=== PATIENT | male | born 1965 | race African-American/Black ===

== ENCOUNTER 2018-06-10 08:44 | Inpatient (IN) | payer OTHER ==
[2018-06-10 09:17] VITALS: BMI 31.7
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
[2018-06-10] MEDS ORDERED: P-EPHED 60MG/TRIPROLIDI 2.5MG TABLET PO PRN (10:24)
[2018-06-10] MEDS ORDERED: LOPERAMIDE HCL 2 MG CAPSULE PO PRN (10:24)
[2018-06-10] MEDS ORDERED: MAGNESIUM CITRATE 300 ML BOTTLE PO PRN (10:24)
[2018-06-10] MEDS ORDERED: chlordiazePOXIDE HCL 25 MG CAPSULE PO PRN (10:24)
[2018-06-10] MEDS ORDERED: ACETAMINOPHEN 325 MG TABLET (FP) PO PRN (10:24)
[2018-06-10] MEDS ORDERED: hydrOXYzine PAMOATE 50 MG CAPSULE (FP) PO PRN (10:24)
[2018-06-10] MEDS ORDERED: MAG HYDROX/AL HYDROX/SIMETH 30 ML UNIT-DOSE CUP PO PRN (10:24)
[2018-06-10] MEDS ORDERED: IBUPROFEN 400 MG TABLET (FP) PO PRN (10:24)
[2018-06-10] MEDS ORDERED: MENTHOL/PHENOL 1 EACH UD MM PRN (10:24)
[2018-06-10] MEDS ORDERED: guaiFENesin/D-METHORPHAN HB 10 ML UNIT-DOSE CUPS PO PRN (10:24)
[2018-06-10] MEDS ORDERED: MAGNESIUM HYDROX 2400MG/30ML ORAL SUSPENSION 30 ML CUP PO PRN (10:24)
[2018-06-10] MEDS ORDERED: ALBUTEROL SO4 8 GM HFA INHALER IH PRN (10:26)
[2018-06-10] MEDS: chlordiazePOXIDE HCL 25 MG CAPSULE PO SCH ×2 (17:38→22:15)
[2018-06-10] MEDS ORDERED: MELATONIN 5 MG TABLETS PO PRN (22:00)
[2018-06-10] MEDS: THIAMINE HCL 100 MG TABLET (FP) PO SCH (22:15)
[2018-06-11] MEDS: chlordiazePOXIDE HCL 25 MG CAPSULE PO SCH ×4 (06:15→22:21)
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
--- NOTE | 2018-06-11 09:24 | EKG ---
Test Reason : Blood Pressure : / mmHG Vent. Rate : 060 BPM Atrial Rate : 060 BPM P-R Int : 164 ms QRS Dur : 148 ms QT Int : 468 ms P-R-T Axes : 057 065 051 degrees QTc Int : 468 ms NORMAL SINUS RHYTHM RIGHT BUNDLE BRANCH BLOCK MODERATE VOLTAGE CRITERIA FOR LVH, MAY BE NORMAL VARIANT ABNORMAL ECG WHEN COMPARED WITH ECG OF 10-DEC-2017 00:05, NO SIGNIFICANT CHANGE WAS FOUND Confirmed by RAFA REDMAN, ANASTASIA ([id number]) on 06/11/2018 9:23:24 AM Referred By: Confirmed By:ANASTASIA CRAIG MD
[2018-06-11 10:39] LABS: HEMATOCRIT 41.2 % (35.4-49); HEMOGLOBIN 13.6 GM/dL (11.7-16.9); MCH 30.4 pg (25.7-33.7); MEAN CELL VOLUME 92.1 fl (80-96); MEAN PLT VOLUME 9.7 fl (7.5-11.1); PLATELET COUNT 200 K/MM3 (134-434); RBC 4.48 M/mm3 (4.00-5.60); RDW 13.2 % (11.9-15.9); WHITE BLOOD COUNT 6.3 K/mm3 (4.0-10.0)
[2018-06-11] MEDS: PRENATAL VITAMINS W/ FOLIC ACID TABLET (FP) PO SCH (10:50)
[2018-06-11 11:04] LABS: ALK PHOS 53 U/L (45-117); ANION GAP 10 MMOL/L (8-16); BILIRUBIN,TOTAL 1.6 mg/dL (0.2-1); BLOOD UREA NITROGEN 10 mg/dL (7-18); CALCIUM 9.6 mg/dL (8.5-10.1); CHLORIDE 109 mmol/L (98-107); CO2 25 mmol/L (21-32); CREATININE 1.1 mg/dL (0.55-1.3); GLUCOSE,RANDOM 75 mg/dL (74-106); POTASSIUM 3.8 mmol/L (3.5-5.1); SGOT/AST 27 U/L (15-37); SGPT/ALT 27 U/L (13-61); SODIUM 144 mmol/L (136-145); TOT PROT 7.2 g/dl (6.4-8.2)
[2018-06-11] MEDS ORDERED: FLU VACCINE QUAD 60 MCG/0.5 ML (MDV 18-19) IM ONE (12:00)
--- NOTE | 2018-06-11 12:40 | PN ---
S CIWA - CIWA Score Nausea/Vomitin-Mild Nausea/No Vomiting Muscle Tremors: 2 Anxiety: 1-Mildly Anxious Agitation: 1-Slight > Activity Paroxysmal Sweats: 2 Orientation: 0-Oriented Tacttile Disturbances: 0-None Auditory Disturbances: 0-None Visual Disturbances: 0-None Headache: 3-Moderate CIWA-Ar Total Score: 10 BHS Progress Note (SOAP) Subjective: PATIENT C/O MILD NAUSEA, SHAKES AND HEADACHE. Objective: 06/11/18 12:38 Vital Signs Temperature 96.7 F L 06/11/18 10:47 Pulse Rate 65 06/11/18 10:47 Respiratory Rate 20 06/11/18 10:47 Blood Pressure 103/56 L 06/11/18 10:47 O2 Sat by Pulse Oximetry (%) Laboratory Tests 06/11/18 06/11/18 06:00 06:00 WBC 6.3 RBC 4.48 Hgb 13.6 Hct 41.2 MCV 92.1 MCH 30.4 MCHC 33.0 RDW 13.2 Plt Count 200 MPV 9.7 Sodium 144 Potassium 3.8 Chloride 109 H Carbon Dioxide 25 Anion Gap 10 BUN 10 Creatinine 1.1 Creat Clearance w eGFR > 60 Random Glucose 75 Calcium 9.6 Total Bilirubin 1.6 H AST 27 ALT 27 Alkaline Phosphatase 53 Total Protein 7.2 Albumin 4.0 ALERT AND ORIENTED X 3 CAR S1S2 RESP CTA BL EXT FULL ROM + TREMORS NEURO +PERRLA, EOMS INTACT BL Assessment: 06/11/18 12:39 WITHDRAWAL SYNDROME Plan: CONTINUE DETOX ORDERED ORAL FLUIDS ENCOURAGED CONTINUE TO MONITOR CLINICALLY APAP/MOTRIN PRN FOR PAIN/HEADACHE
[2018-06-11 18:33] LABS: URINE APPEARANCE CLEAR; URINE BILIRUBIN NEGATIVE (<2.0 mg/dL); URINE COLOR STRAW; URINE GLUCOSE (UA) NEGATIVE (NEGATIVE); URINE KETONE NEGATIVE (NEGATIVE); URINE LEUK ESTERASE NEGATIVE (NEGATIVE); URINE NITRITE NEGATIVE (NEGATIVE); URINE PROTEIN NEGATIVE (NEGATIVE); URINE UROBILINOGEN NEGATIVE mg/dL (0.2-1.0)
[2018-06-11] MEDS: THIAMINE HCL 100 MG TABLET (FP) PO SCH (22:21)
[2018-06-12] MEDS: chlordiazePOXIDE HCL 25 MG CAPSULE PO SCH ×2 (06:42→10:39)
[2018-06-12] MEDS: PRENATAL VITAMINS W/ FOLIC ACID TABLET (FP) PO SCH (10:39)
--- NOTE | 2018-06-12 12:55 | PN ---
[facility] CIWA - CIWA Score Nausea/Vomitin Muscle Tremors: 3 Anxiety: 3 Agitation: 3 Paroxysmal Sweats: 3 Orientation: 0-Oriented Tacttile Disturbances: 0-None Auditory Disturbances: 0-None Visual Disturbances: 0-None Headache: 0-None Present CIWA-Ar Total Score: 14 BHS Progress Note (SOAP) Subjective: Headache (mild), interrupted sleep Objective: 06/12/18 12:51 Last Vital Signs Temp Pulse Resp BP Pulse Ox 96.7 F L 78 18 106/72 06/12/18 09:46 06/12/18 09:46 06/12/18 09:46 06/12/18 09:46 Laboratory Tests 06/11/18 06/11/18 06/11/18 06:00 06:00 06:00 WBC 6.3 RBC 4.48 Hgb 13.6 Hct 41.2 MCV 92.1 MCH 30.4 MCHC 33.0 RDW 13.2 Plt Count 200 MPV 9.7 Sodium 144 Potassium 3.8 Chloride 109 H Carbon Dioxide 25 Anion Gap 10 BUN 10 Creatinine 1.1 Creat Clearance w eGFR > 60 Random Glucose 75 Calcium 9.6 Total Bilirubin 1.6 H AST 27 ALT 27 Alkaline Phosphatase 53 Total Protein 7.2 Albumin 4.0 Urine Color Urine Appearance Urine pH Ur Specific [place] Urine Protein Urine Glucose (UA) Urine Ketones Urine Blood Urine Nitrite Urine Bilirubin Urine Urobilinogen Ur Leukocyte Esterase RPR Titer Nonreactive 06/11/18 15:00 WBC RBC Hgb Hct MCV MCH MCHC RDW Plt Count MPV Sodium Potassium Chloride Carbon Dioxide Anion Gap BUN Creatinine Creat Clearance w eGFR Random Glucose Calcium Total Bilirubin AST ALT Alkaline Phosphatase Total Protein Albumin Urine Color Straw Urine Appearance Clear Urine pH 7.0 Ur Specific [place] 1.011 Urine Protein Negative Urine Glucose (UA) Negative Urine Ketones Negative Urine Blood Negative Urine Nitrite Negative Urine Bilirubin Negative Urine Urobilinogen Negative Ur Leukocyte Esterase Negative RPR Titer Labs reviewed: total bilirubin level 1.6 Assessment: 06/12/18 12:53 Withdrawal symptoms Noted with elevated total bilirubin Plan: Continue detox Encouraged PO water intake Elevated total bilirubin: repeat total bilirubin level in AM
--- NOTE | 2018-06-12 17:14 | PN ---
S CIWA - CIWA Score Visual Disturbances: 0-None BHS COWS - Scale Resting Pulse: 1= [place] 81-100 Sweatin= No chills or Flushing Restless Observation: 1= Difficult to Sit Still Pupil Size: 2= Moderately Dilated Bone or Joint Aches: 2= Severe Diffuse Aches Runny Nose/ Eye Tearin= Runny Nose/Eyes GI Upset > 30mins: 1= Stomach Cramp Tremor Observation of Outstretched Hands: 2= Slight Tremor Visible Yawning Observation: 0= None Anxiety or Irritability: 1=Feels Anxious/Irritable Goose Flesh Skin: 3=Piloerection COWS Score: 15 BHS Progress Note (SOAP) Subjective: Patient wanting to start on Suboxone to assist in maintaining sobriety when discharged. I can't eat, I can't sleep. My anxiety level is up. I have achy back and bone pain all over. Objective: Alert and oriented. COWS is 15 w/ 10 points based on objective symptoms. Vital Signs 06/12/18 06/12/18 09:46 13:32 Temperature 96.7 F L 96.1 F L Pulse Rate 78 82 Respiratory 18 18 Rate Blood Pressure 106/72 113/69 Assessment: Opiate withdrawal. Arrangement have been made to be f/u at [facility] upon discharge. 06/12/18 17:25 Plan: Reviewed Suboxone medication treatment as an opiate agonist. Discussed overdose risks r/t medication treatment and if patient continues to use other prescribed and illicit opiates (dibbing and dabbing). Give Suboxone 2mg/0.5 mg SL now. Evaluate in 60 minutes and prescribe a dose increase based on patient's subjective and objective symptoms.
[2018-06-12] MEDS: chlordiazePOXIDE 5 MG CAPSULE PO SCH ×2 (17:20→22:11)
[2018-06-12] MEDS ORDERED: BUPRENORPHINE/NALOXONE 2 MG/0.5 MG FILM PACKET SL ONE (17:22)
[2018-06-12] MEDS: THIAMINE HCL 100 MG TABLET (FP) PO SCH (22:11)
[2018-06-13] MEDS: chlordiazePOXIDE 5 MG CAPSULE PO SCH ×2 (06:04→10:39)
[2018-06-13] MEDS: PRENATAL VITAMINS W/ FOLIC ACID TABLET (FP) PO SCH (10:39)
--- NOTE | 2018-06-13 12:36 | PN ---
[facility] Progress Note Note: PATIENT TOLERATING DETOX REGIMEN. C/O MILD DIARRHEA. REFUSED REPEAT LABS THIS MORNING. Vital Signs Temperature 97.3 F L 06/13/18 09:57 Pulse Rate 96 H 06/13/18 09:57 Respiratory Rate 18 06/13/18 09:57 Blood Pressure 109/69 06/13/18 09:57 O2 Sat by Pulse Oximetry (%) Laboratory Tests 06/11/18 06/11/18 06/11/18 06:00 06:00 06:00 WBC 6.3 RBC 4.48 Hgb 13.6 Hct 41.2 MCV 92.1 MCH 30.4 MCHC 33.0 RDW 13.2 Plt Count 200 MPV 9.7 Sodium 144 Potassium 3.8 Chloride 109 H Carbon Dioxide 25 Anion Gap 10 BUN 10 Creatinine 1.1 Creat Clearance w eGFR > 60 Random Glucose 75 Calcium 9.6 Total Bilirubin 1.6 H AST 27 ALT 27 Alkaline Phosphatase 53 Total Protein 7.2 Albumin 4.0 Urine Color Urine Appearance Urine pH Ur Specific [place] Urine Protein Urine Glucose (UA) Urine Ketones Urine Blood Urine Nitrite Urine Bilirubin Urine Urobilinogen Ur Leukocyte Esterase RPR Titer Nonreactive 06/11/18 15:00 WBC RBC Hgb Hct MCV MCH MCHC RDW Plt Count MPV Sodium Potassium Chloride Carbon Dioxide Anion Gap BUN Creatinine Creat Clearance w eGFR Random Glucose Calcium Total Bilirubin AST ALT Alkaline Phosphatase Total Protein Albumin Urine Color Straw Urine Appearance Clear Urine pH 7.0 Ur Specific [place] 1.011 Urine Protein Negative Urine Glucose (UA) Negative Urine Ketones Negative Urine Blood Negative Urine Nitrite Negative Urine Bilirubin Negative Urine Urobilinogen Negative Ur Leukocyte Esterase Negative RPR Titer SKIN WARM AND DRY CAR S1S2 RESP CTA BL EXT AMB AD JAMISON, NO TREMORS ALERT AND ORIENTED X 3 A/P: WITHDRAWAL SX PATIENT TO CONTINUE DETOX ENCOURAGE ORAL FLUIDS IMMODIUM PRN PATIENT ENCOURAGED TO FOLLOW UP WITH PCP WITHIN 3 DAYS OF DISCHARGE FOR FOLLOW UP CONTINUE TO MONITOR
[2018-06-13] MEDS: chlordiazePOXIDE HCL 10 MG CAPSULE PO SCH ×2 (17:31→22:33)
[2018-06-13] MEDS: THIAMINE HCL 100 MG TABLET (FP) PO SCH (22:33)
[2018-06-14] MEDS: chlordiazePOXIDE HCL 10 MG CAPSULE PO SCH ×2 (05:57→10:31)
[2018-06-14 10:01] VITALS: BP 118/68; PULSE 78; TEMP 98.1
[2018-06-14] MEDS: PRENATAL VITAMINS W/ FOLIC ACID TABLET (FP) PO SCH (10:31)
--- NOTE | 2018-06-14 12:23 | DS ---
[facility] Detox Discharge Summary Admission Date: 06/10/18 Discharge Date: 06/14/18 - History Present History: Alcohol Dependence, Cocaine Dependence Pertinent Past History: Asthma Obesity - Physical Exam Results Vital Signs: Vital Signs Temperature 98.1 F 06/14/18 10:00 Pulse Rate 78 06/14/18 10:00 Respiratory Rate 18 06/14/18 10:00 Blood Pressure 118/68 06/14/18 10:00 O2 Sat by Pulse Oximetry (%) Pertinent Admission Physical Exam Findings: Withdrawal symptoms Laboratory Tests 06/11/18 06/11/18 06/11/18 06:00 06:00 06:00 WBC 6.3 RBC 4.48 Hgb 13.6 Hct 41.2 MCV 92.1 MCH 30.4 MCHC 33.0 RDW 13.2 Plt Count 200 MPV 9.7 Sodium 144 Potassium 3.8 Chloride 109 H Carbon Dioxide 25 Anion Gap 10 BUN 10 Creatinine 1.1 Creat Clearance w eGFR > 60 Random Glucose 75 Calcium 9.6 Total Bilirubin 1.6 H AST 27 ALT 27 Alkaline Phosphatase 53 Total Protein 7.2 Albumin 4.0 Urine Color Urine Appearance Urine pH Ur Specific [place] Urine Protein Urine Glucose (UA) Urine Ketones Urine Blood Urine Nitrite Urine Bilirubin Urine Urobilinogen Ur Leukocyte Esterase RPR Titer Nonreactive 06/11/18 15:00 WBC RBC Hgb Hct MCV MCH MCHC RDW Plt Count MPV Sodium Potassium Chloride Carbon Dioxide Anion Gap BUN Creatinine Creat Clearance w eGFR Random Glucose Calcium Total Bilirubin AST ALT Alkaline Phosphatase Total Protein Albumin Urine Color Straw Urine Appearance Clear Urine pH 7.0 Ur Specific [place] 1.011 Urine Protein Negative Urine Glucose (UA) Negative Urine Ketones Negative Urine Blood Negative Urine Nitrite Negative Urine Bilirubin Negative Urine Urobilinogen Negative Ur Leukocyte Esterase Negative RPR Titer Labs reviewed (patient refused repeated lab as ordered for elevated total bilirubin) - Treatment Hospital Course: Detox Protocol Followed, Detoxed Safely, Responded well, Discharged Condition Good - Medication Discharge Medications: Ambulatory Orders NK [No Known Home Medication] 12/09/17 - Diagnosis (1) Serum total bilirubin elevated Current Visit: Yes Status: Acute (2) Asthma Current Visit: Yes Status: Chronic (3) Depression Current Visit: Yes Status: Chronic (4) Alcohol dependence with withdrawal Current Visit: Yes Status: Acute Qualifiers: Complication of substance-induced condition: uncomplicated Qualified Code(s ): F10.230 - Alcohol dependence with withdrawal, uncomplicated (5) Bipolar disorder Current Visit: Yes Status: Chronic Qualifiers: Active/Remission status: remission status unspecified Qualified Code(s): F31.9 - Bipolar disorder, unspecified (6) Cocaine dependence Current Visit: No Status: Chronic Qualifiers: Substance use status: uncomplicated Qualified Code(s): F14.20 - Cocaine dependence, uncomplicated (7) Obese Current Visit: Yes Status: Chronic Qualifiers: Obesity type: due to excess calories Obesity classification: adult class 2 (BMI 35 - 39.9) Serious obesity comorbidity presence: unspecified whether serious comorbidity present Body mass index: BMI 38.0-38.9 Qualified Code(s) : E66.09 - Other obesity due to excess calories; Z68.38 - Body mass index (BMI) 38.0-38.9, adult - AMA Did Patient Leave Against Medical Advice: No (F/U with your PCP within 1-2 weeks )
== END 2018-06-14 14:40 | disposition home or self-care (01) | DRG 774 ==
LOC: YASAS 08:44 → Y3N 10:28
PROC: HZ2ZZZZ Detoxification Services for Substance Abuse Treatment (ICD-10-PCS; principal; 2018-06-10)
DX: F10.230 Alcohol dependence with withdrawal, uncomplicated (principal); F14.20 Cocaine dependence, uncomplicated; F31.9 Bipolar disorder, unspecified; F32.9 Major depressive disorder, single episode, unspecified; J45.909 Unspecified asthma, uncomplicated; E78.00 Pure hypercholesterolemia, unspecified; R17 Unspecified jaundice; E66.09 Other obesity due to excess calories; Z68.31 Body mass index [BMI] 31.0-31.9, adult; Z88.0 Allergy status to penicillin
CPT/HCPCS: 36415; 80053; 81003; 85027; 86593; 93005; 93010

== ENCOUNTER 2018-07-23 08:49 | Inpatient (IN) | payer OTHER ==
[2018-07-23 10:04] VITALS: BMI 32.5
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
[2018-07-23] MEDS ORDERED: MAGNESIUM CITRATE 300 ML BOTTLE PO PRN (11:22)
[2018-07-23] MEDS ORDERED: chlordiazePOXIDE HCL 25 MG CAPSULE PO PRN (11:22)
[2018-07-23] MEDS ORDERED: MENTHOL/PHENOL 1 EACH UD MM PRN (11:22)
[2018-07-23] MEDS ORDERED: guaiFENesin/D-METHORPHAN HB 10 ML UNIT-DOSE CUPS PO PRN (11:22)
[2018-07-23] MEDS ORDERED: MAG HYDROX/AL HYDROX/SIMETH 30 ML UNIT-DOSE CUP PO PRN (11:22)
[2018-07-23] MEDS ORDERED: ACETAMINOPHEN 325 MG TABLET (FP) PO PRN (11:22)
[2018-07-23] MEDS ORDERED: P-EPHED 60MG/TRIPROLIDI 2.5MG TABLET PO PRN (11:22)
[2018-07-23] MEDS ORDERED: LOPERAMIDE HCL 2 MG CAPSULE PO PRN (11:22)
[2018-07-23] MEDS ORDERED: hydrOXYzine PAMOATE 50 MG CAPSULE (FP) PO PRN (11:22)
[2018-07-23] MEDS ORDERED: MAGNESIUM HYDROX 2400MG/30ML ORAL SUSPENSION 30 ML CUP PO PRN (11:22)
[2018-07-23] MEDS: IBUPROFEN 400 MG TABLET (FP) PO PRN (12:45)
[2018-07-23 18:42] LABS: URINE APPEARANCE SLCLOUDY; URINE BILIRUBIN NEGATIVE (<2.0 mg/dL); URINE COLOR DKYELLOW; URINE GLUCOSE (UA) NEGATIVE (NEGATIVE); URINE KETONE NEGATIVE (NEGATIVE); URINE LEUK ESTERASE NEGATIVE (NEGATIVE); URINE NITRITE NEGATIVE (NEGATIVE); URINE PROTEIN NEGATIVE (NEGATIVE)
[2018-07-23] MEDS: chlordiazePOXIDE HCL 25 MG CAPSULE PO SCH ×2 (19:45→22:42)
[2018-07-23] MEDS ORDERED: MELATONIN 5 MG TABLETS PO PRN (22:00)
[2018-07-23] MEDS: THIAMINE HCL 100 MG TABLET (FP) PO SCH (22:41)
[2018-07-24] MEDS: chlordiazePOXIDE HCL 25 MG CAPSULE PO SCH ×4 (05:48→22:45)
--- NOTE | 2018-07-24 10:00 | PN ---
S CIWA - CIWA Score Nausea/Vomitin-No Nausea/No Vomiting Muscle Tremors: 3 Anxiety: 2 Agitation: 4-Moderately Restless Paroxysmal Sweats: 3 Orientation: 0-Oriented Tacttile Disturbances: 0-None Auditory Disturbances: 0-None Visual Disturbances: 0-None Headache: 0-None Present CIWA-Ar Total Score: 12 BHS Progress Note (SOAP) Subjective: shakes sweats interrupted sleep body aches Objective: 07/24/18 09:59 Vital Signs Temperature 97.9 F 07/24/18 07:42 Pulse Rate 55 L 07/24/18 07:42 Respiratory Rate 18 07/24/18 07:42 Blood Pressure 108/59 L 07/24/18 07:42 O2 Sat by Pulse Oximetry (%) Laboratory Tests 07/23/18 17:30 Urine Color Dkyellow Urine Appearance Slcloudy Urine pH 5.0 D Ur Specific [place] 1.025 Urine Protein Negative Urine Glucose (UA) Negative Urine Ketones Negative Urine Blood Negative Urine Nitrite Negative Urine Bilirubin Negative Urine Urobilinogen 2.0 Ur Leukocyte Esterase Negative rest of labs pending aaox3 ambulating no acute distress Assessment: 07/24/18 09:59 withdrawal sx Plan: continue detox increase fluids labs pending
[2018-07-24 10:27] LABS: HEMATOCRIT 39.3 % (35.4-49); HEMOGLOBIN 13.7 GM/dL (11.7-16.9); MCH 32.3 pg (25.7-33.7); MEAN CELL VOLUME 92.3 fl (80-96); MEAN PLT VOLUME 9.7 fl (7.5-11.1); PLATELET COUNT 205 K/MM3 (134-434); RBC 4.25 M/mm3 (4.00-5.60); RDW 13.2 % (11.9-15.9); WHITE BLOOD COUNT 7.4 K/mm3 (4.0-10.0)
[2018-07-24] MEDS: PRENATAL VITAMINS W/ FOLIC ACID TABLET (FP) PO SCH (10:36)
[2018-07-24] MEDS: IBUPROFEN 400 MG TABLET (FP) PO PRN (10:39)
[2018-07-24 11:05] LABS: ALBUMIN 3.5 g/dl (3.4-5.0); ALK PHOS 82 U/L (45-117); ANION GAP 10 MMOL/L (8-16); BILIRUBIN,TOTAL 0.2 mg/dL (0.2-1); BLOOD UREA NITROGEN 13 mg/dL (7-18); CALCIUM 8.5 mg/dL (8.5-10.1); CHLORIDE 102 mmol/L (98-107); CO2 27 mmol/L (21-32); CREATININE 1.1 mg/dL (0.55-1.3); GLUCOSE,RANDOM 102 mg/dL (74-106); POTASSIUM 3.8 mmol/L (3.5-5.1); SGOT/AST 13 U/L (15-37); SGPT/ALT 14 U/L (13-61); SODIUM 139 mmol/L (136-145); TOT PROT 8.5 g/dl (6.4-8.2)
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
[2018-07-24] MEDS: THIAMINE HCL 100 MG TABLET (FP) PO SCH (22:45)
[2018-07-25] MEDS: chlordiazePOXIDE HCL 25 MG CAPSULE PO SCH ×2 (05:58→10:23)
[2018-07-25] MEDS: PRENATAL VITAMINS W/ FOLIC ACID TABLET (FP) PO SCH (10:23)
--- NOTE | 2018-07-25 13:37 | PN ---
[facility] CIWA - CIWA Score Nausea/Vomitin-Mild Nausea/No Vomiting Muscle Tremors: 2 Anxiety: 2 Agitation: 2 Paroxysmal Sweats: 3 Orientation: 0-Oriented Tacttile Disturbances: 0-None Auditory Disturbances: 0-None Visual Disturbances: 0-None Headache: 0-None Present CIWA-Ar Total Score: 10 S Progress Note (SOAP) Subjective: sweats interrupted sleep Objective: 07/25/18 13:32 A & O x 3 sitting up on bed eating Vital Signs Temperature 97.6 F 07/25/18 10:38 Pulse Rate 70 07/25/18 10:38 Respiratory Rate 18 07/25/18 10:38 Blood Pressure 123/65 07/25/18 10:38 O2 Sat by Pulse Oximetry (%) Laboratory Last Values WBC 7.4 K/mm3 (4.0-10.0) 07/24/18 05:55 RBC 4.25 M/mm3 (4.00-5.60) 07/24/18 05:55 Hgb 13.7 GM/dL (11.7-16.9) 07/24/18 05:55 Hct 39.3 % (35.4-49) 07/24/18 05:55 MCV 92.3 fl (80-96) 07/24/18 05:55 MCH 32.3 pg (25.7-33.7) 07/24/18 05:55 MCHC 35.0 g/dl (32.0-35.9) 07/24/18 05:55 RDW 13.2 % (11.9-15.9) 07/24/18 05:55 Plt Count 205 K/MM3 (134-434) 07/24/18 05:55 MPV 9.7 fl (7.5-11.1) 07/24/18 05:55 Sodium 139 mmol/L (136-145) 07/24/18 05:55 Potassium 3.8 mmol/L (3.5-5.1) 07/24/18 05:55 Chloride 102 mmol/L (98-107) 07/24/18 05:55 Carbon Dioxide 27 mmol/L (21-32) 07/24/18 05:55 Anion Gap 10 MMOL/L (8-16) 07/24/18 05:55 BUN 13 mg/dL (7-18) 07/24/18 05:55 Creatinine 1.1 mg/dL (0.55-1.3) 07/24/18 05:55 Creat Clearance w eGFR > 60 (>60) 07/24/18 05:55 Random Glucose 102 mg/dL (74-106) 07/24/18 05:55 Calcium 8.5 mg/dL (8.5-10.1) 07/24/18 05:55 Total Bilirubin 0.2 mg/dL (0.2-1) 07/24/18 05:55 AST 13 U/L (15-37) L 07/24/18 05:55 ALT 14 U/L (13-61) 07/24/18 05:55 Alkaline Phosphatase 82 U/L (45-117) 07/24/18 05:55 Total Protein 8.5 g/dl (6.4-8.2) H 07/24/18 05:55 Albumin 3.5 g/dl (3.4-5.0) 07/24/18 05:55 Urine Color Dkyellow 07/23/18 17:30 Urine Appearance Slcloudy 07/23/18 17:30 Urine pH 5.0 (5.0-8.0) D 07/23/18 17:30 Ur Specific [place] 1.025 (1.010-1.035) 07/23/18 17:30 Urine Protein Negative (NEGATIVE) 07/23/18 17:30 Urine Glucose (UA) Negative (NEGATIVE) 07/23/18 17:30 Urine Ketones Negative (NEGATIVE) 07/23/18 17:30 Urine Blood Negative (NEGATIVE) 07/23/18 17:30 Urine Nitrite Negative (NEGATIVE) 07/23/18 17:30 Urine Bilirubin Negative (<2.0 mg/dL) 07/23/18 17:30 Urine Urobilinogen 2.0 mg/dL (0.2-1.0) 07/23/18 17:30 Ur Leukocyte Esterase Negative (NEGATIVE) 07/23/18 17:30 RPR Titer Nonreactive (NONREACTIVE) 07/24/18 05:55 labs noted Assessment: 07/25/18 13:37 withdrawal sx Plan: continue detox continue increased hydration
[2018-07-25] MEDS: chlordiazePOXIDE 5 MG CAPSULE PO SCH ×2 (17:38→22:15)
[2018-07-25] MEDS: THIAMINE HCL 100 MG TABLET (FP) PO SCH (22:14)
[2018-07-26] MEDS: chlordiazePOXIDE 5 MG CAPSULE PO SCH ×2 (05:32→10:21)
[2018-07-26] MEDS: PRENATAL VITAMINS W/ FOLIC ACID TABLET (FP) PO SCH (10:21)
--- NOTE | 2018-07-26 14:24 | PN ---
BHS Progress Note (SOAP) Subjective: feeling better today no tremor less sweat social with peers in day room Objective: 07/26/18 14:25 Vital Signs Temperature 98.9 F 07/26/18 14:06 Pulse Rate 90 07/26/18 14:06 Respiratory Rate 18 07/26/18 14:06 Blood Pressure 116/70 07/26/18 14:06 O2 Sat by Pulse Oximetry (%) Laboratory Last Values WBC 7.4 K/mm3 (4.0-10.0) 07/24/18 05:55 RBC 4.25 M/mm3 (4.00-5.60) 07/24/18 05:55 Hgb 13.7 GM/dL (11.7-16.9) 07/24/18 05:55 Hct 39.3 % (35.4-49) 07/24/18 05:55 MCV 92.3 fl (80-96) 07/24/18 05:55 MCH 32.3 pg (25.7-33.7) 07/24/18 05:55 MCHC 35.0 g/dl (32.0-35.9) 07/24/18 05:55 RDW 13.2 % (11.9-15.9) 07/24/18 05:55 Plt Count 205 K/MM3 (134-434) 07/24/18 05:55 MPV 9.7 fl (7.5-11.1) 07/24/18 05:55 Sodium 139 mmol/L (136-145) 07/24/18 05:55 Potassium 3.8 mmol/L (3.5-5.1) 07/24/18 05:55 Chloride 102 mmol/L (98-107) 07/24/18 05:55 Carbon Dioxide 27 mmol/L (21-32) 07/24/18 05:55 Anion Gap 10 MMOL/L (8-16) 07/24/18 05:55 BUN 13 mg/dL (7-18) 07/24/18 05:55 Creatinine 1.1 mg/dL (0.55-1.3) 07/24/18 05:55 Creat Clearance w eGFR > 60 (>60) 07/24/18 05:55 Random Glucose 102 mg/dL (74-106) 07/24/18 05:55 Calcium 8.5 mg/dL (8.5-10.1) 07/24/18 05:55 Total Bilirubin 0.2 mg/dL (0.2-1) 07/24/18 05:55 AST 13 U/L (15-37) L 07/24/18 05:55 ALT 14 U/L (13-61) 07/24/18 05:55 Alkaline Phosphatase 82 U/L (45-117) 07/24/18 05:55 Total Protein 8.5 g/dl (6.4-8.2) H 07/24/18 05:55 Albumin 3.5 g/dl (3.4-5.0) 07/24/18 05:55 Urine Color Dkyellow 07/23/18 17:30 Urine Appearance Slcloudy 07/23/18 17:30 Urine pH 5.0 (5.0-8.0) D 07/23/18 17:30 Ur Specific [place] 1.025 (1.010-1.035) 07/23/18 17:30 Urine Protein Negative (NEGATIVE) 07/23/18 17:30 Urine Glucose (UA) Negative (NEGATIVE) 07/23/18 17:30 Urine Ketones Negative (NEGATIVE) 07/23/18 17:30 Urine Blood Negative (NEGATIVE) 07/23/18 17:30 Urine Nitrite Negative (NEGATIVE) 07/23/18 17:30 Urine Bilirubin Negative (<2.0 mg/dL) 07/23/18 17:30 Urine Urobilinogen 2.0 mg/dL (0.2-1.0) 07/23/18 17:30 Ur Leukocyte Esterase Negative (NEGATIVE) 07/23/18 17:30 RPR Titer Nonreactive (NONREACTIVE) 07/24/18 05:55 lab noted Assessment: 07/26/18 14:25 mild withdrawal sx Plan: continue detox
[2018-07-26] MEDS: chlordiazePOXIDE HCL 10 MG CAPSULE PO SCH ×2 (18:03→22:09)
[2018-07-26] MEDS: THIAMINE HCL 100 MG TABLET (FP) PO SCH (22:09)
[2018-07-27] MEDS: chlordiazePOXIDE HCL 10 MG CAPSULE PO SCH ×2 (05:33→10:08)
[2018-07-27 09:08] VITALS: BP 131/81; PULSE 87; TEMP 98.2
[2018-07-27] MEDS: PRENATAL VITAMINS W/ FOLIC ACID TABLET (FP) PO SCH (10:08)
--- NOTE | 2018-07-27 14:52 | DS ---
[facility] Detox Discharge Summary Admission Date: 07/23/18 Discharge Date: 07/27/18 - History Present History: Alcohol Dependence Additional Comments: 53 years old male admitted on 07/23/18 for alcohol withdrawal sx completed detox regimen tolerated well alert oriented x 3 no acute distress aftercare [facility] - Physical Exam Results Vital Signs: Vital Signs Temperature 98.2 F 07/27/18 09:07 Pulse Rate 87 07/27/18 09:07 Respiratory Rate 18 07/27/18 09:07 Blood Pressure 131/81 07/27/18 09:07 O2 Sat by Pulse Oximetry (%) Pertinent Admission Physical Exam Findings: alcohol withdrawal sx Vital Signs Temperature 98.2 F 07/27/18 09:07 Pulse Rate 87 07/27/18 09:07 Respiratory Rate 18 07/27/18 09:07 Blood Pressure 131/81 07/27/18 09:07 O2 Sat by Pulse Oximetry (%) Laboratory Last Values WBC 7.4 K/mm3 (4.0-10.0) 07/24/18 05:55 RBC 4.25 M/mm3 (4.00-5.60) 07/24/18 05:55 Hgb 13.7 GM/dL (11.7-16.9) 07/24/18 05:55 Hct 39.3 % (35.4-49) 07/24/18 05:55 MCV 92.3 fl (80-96) 07/24/18 05:55 MCH 32.3 pg (25.7-33.7) 07/24/18 05:55 MCHC 35.0 g/dl (32.0-35.9) 07/24/18 05:55 RDW 13.2 % (11.9-15.9) 07/24/18 05:55 Plt Count 205 K/MM3 (134-434) 07/24/18 05:55 MPV 9.7 fl (7.5-11.1) 07/24/18 05:55 Sodium 139 mmol/L (136-145) 07/24/18 05:55 Potassium 3.8 mmol/L (3.5-5.1) 07/24/18 05:55 Chloride 102 mmol/L (98-107) 07/24/18 05:55 Carbon Dioxide 27 mmol/L (21-32) 07/24/18 05:55 Anion Gap 10 MMOL/L (8-16) 07/24/18 05:55 BUN 13 mg/dL (7-18) 07/24/18 05:55 Creatinine 1.1 mg/dL (0.55-1.3) 07/24/18 05:55 Creat Clearance w eGFR > 60 (>60) 07/24/18 05:55 Random Glucose 102 mg/dL (74-106) 07/24/18 05:55 Calcium 8.5 mg/dL (8.5-10.1) 07/24/18 05:55 Total Bilirubin 0.2 mg/dL (0.2-1) 07/24/18 05:55 AST 13 U/L (15-37) L 07/24/18 05:55 ALT 14 U/L (13-61) 07/24/18 05:55 Alkaline Phosphatase 82 U/L (45-117) 07/24/18 05:55 Total Protein 8.5 g/dl (6.4-8.2) H 07/24/18 05:55 Albumin 3.5 g/dl (3.4-5.0) 07/24/18 05:55 Urine Color Dkyellow 07/23/18 17:30 Urine Appearance Slcloudy 07/23/18 17:30 Urine pH 5.0 (5.0-8.0) D 07/23/18 17:30 Ur Specific [place] 1.025 (1.010-1.035) 07/23/18 17:30 Urine Protein Negative (NEGATIVE) 07/23/18 17:30 Urine Glucose (UA) Negative (NEGATIVE) 07/23/18 17:30 Urine Ketones Negative (NEGATIVE) 07/23/18 17:30 Urine Blood Negative (NEGATIVE) 07/23/18 17:30 Urine Nitrite Negative (NEGATIVE) 07/23/18 17:30 Urine Bilirubin Negative (<2.0 mg/dL) 07/23/18 17:30 Urine Urobilinogen 2.0 mg/dL (0.2-1.0) 07/23/18 17:30 Ur Leukocyte Esterase Negative (NEGATIVE) 07/23/18 17:30 RPR Titer Nonreactive (NONREACTIVE) 07/24/18 05:55 lab noted - Treatment Hospital Course: Detox Protocol Followed, Detoxed Safely, Responded well, Discharged Condition Good, Rehab Referral Accepted Patient has Accepted a Rehab Referral to: [facility] - Medication Discharge Medications: Ambulatory Orders NK [No Known Home Medication] 12/09/17 - Diagnosis (1) Nicotine dependence Status: Acute Qualifiers: Nicotine product type: cigarettes Substance use status: in withdrawal Qualified Code(s): F17.213 - Nicotine dependence, cigarettes, with withdrawal (2) Asthma Status: Chronic Qualifiers: Asthma severity: mild Asthma persistence: intermittent Asthma complication type: with status asthmaticus Qualified Code(s): J45.22 - Mild intermittent asthma with status asthmaticus (3) Substance induced mood disorder Status: Suspected - AMA Did Patient Leave Against Medical Advice: No
== END 2018-07-27 11:30 | disposition home or self-care (01) | DRG 774 ==
LOC: YASAS 08:49 → Y6N 11:48
PROC: HZ2ZZZZ Detoxification Services for Substance Abuse Treatment (ICD-10-PCS; principal; 2018-07-23)
DX: F10.230 Alcohol dependence with withdrawal, uncomplicated (principal); F14.20 Cocaine dependence, uncomplicated; F17.213 Nicotine dependence, cigarettes, with withdrawal; F32.9 Major depressive disorder, single episode, unspecified; F19.24 Other psychoactive substance dependence with psychoactive substance-induced mood disorder; F31.9 Bipolar disorder, unspecified; F80.9 Developmental disorder of speech and language, unspecified; J45.22 Mild intermittent asthma with status asthmaticus; K59.00 Constipation, unspecified; K00.0 Anodontia; E66.9 Obesity, unspecified; Z68.38 Body mass index [BMI] 38.0-38.9, adult; Z91.19 Patient's noncompliance with other medical treatment and regimen
CPT/HCPCS: 36415; 80053; 81003; 85027; 86593

== ENCOUNTER 2018-10-22 12:56 | Inpatient (IN) | payer OTHER ==
[2018-10-22 13:34] VITALS: BMI 33.2
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
[2018-10-22] MEDS ORDERED: MENTHOL/PHENOL 1 EACH UD MM PRN (15:02)
[2018-10-22] MEDS ORDERED: hydrOXYzine PAMOATE 50 MG CAPSULE (FP) PO PRN (15:02)
[2018-10-22] MEDS ORDERED: ACETAMINOPHEN 325 MG TABLET (FP) PO PRN (15:02)
[2018-10-22] MEDS ORDERED: IBUPROFEN 400 MG TABLET (FP) PO PRN (15:02)
[2018-10-22] MEDS ORDERED: P-EPHED 60MG/TRIPROLIDI 2.5MG TABLET PO PRN (15:02)
[2018-10-22] MEDS ORDERED: LOPERAMIDE HCL 2 MG CAPSULE PO PRN (15:02)
[2018-10-22] MEDS ORDERED: chlordiazePOXIDE HCL 25 MG CAPSULE PO PRN (15:02)
[2018-10-22] MEDS ORDERED: MAG HYDROX/AL HYDROX/SIMETH 30 ML UNIT-DOSE CUP PO PRN (15:02)
[2018-10-22] MEDS ORDERED: guaiFENesin/D-METHORPHAN HB 10 ML UNIT-DOSE CUPS PO PRN (15:02)
[2018-10-22] MEDS ORDERED: MAGNESIUM HYDROX 2400MG/30ML ORAL SUSPENSION 30 ML CUP PO PRN (15:02)
[2018-10-22] MEDS ORDERED: MAGNESIUM CITRATE 300 ML BOTTLE PO PRN (15:02)
[2018-10-22] MEDS ORDERED: MELATONIN 5 MG TABLETS PO PRN (22:00)
[2018-10-22] MEDS: THIAMINE HCL 100 MG TABLET (FP) PO SCH (22:15)
[2018-10-22] MEDS: chlordiazePOXIDE HCL 25 MG CAPSULE PO SCH (22:15)
[2018-10-23] MEDS: chlordiazePOXIDE HCL 25 MG CAPSULE PO SCH ×4 (05:18→22:12)
[2018-10-23] MEDS: PRENATAL VITAMINS W/ FOLIC ACID TABLET (FP) PO SCH (10:26)
[2018-10-23 10:52] LABS: HEMATOCRIT 40.4 % (35.4-49); HEMOGLOBIN 13.9 GM/dL (11.7-16.9); MCH 31.7 pg (25.7-33.7); MCHC 34.3 g/dl (32.0-35.9); MEAN CELL VOLUME 92.4 fl (80-96); MEAN PLT VOLUME 9.9 fl (7.5-11.1); PLATELET COUNT 216 K/MM3 (134-434); RBC 4.38 M/mm3 (4.00-5.60); RDW 12.9 % (11.9-15.9); WHITE BLOOD COUNT 7.4 K/mm3 (4.0-10.0)
[2018-10-23 10:57] LABS: ALBUMIN 4.1 g/dl (3.4-5.0); ALK PHOS 52 U/L (45-117); ANION GAP 9 MMOL/L (8-16); BILIRUBIN,TOTAL 1.7 mg/dL (0.2-1); BLOOD UREA NITROGEN 16 mg/dL (7-18); CHLORIDE 109 mmol/L (98-107); CO2 25 mmol/L (21-32); CREATININE 1.3 mg/dL (0.55-1.3); GLUCOSE,RANDOM 88 mg/dL (74-106); POTASSIUM 3.9 mmol/L (3.5-5.1); SGOT/AST 23 U/L (15-37); SGPT/ALT 25 U/L (13-61); SODIUM 142 mmol/L (136-145); TOT PROT 7.5 g/dl (6.4-8.2)
--- NOTE | 2018-10-23 17:06 | CONSULT ---
[facility] Psychiatric Consult - Data Date of interview: 10/23/18 Admission source: [facility] Identifying data: Patient is a 53 year old single male, without children, unemployed, homeless, and currently supported by public assistance. This is one of multiple admissions for patient. Patient admitted to for alcohol and cocaine dependence. Substance Abuse History: Smoking Cessation. Smoking history: Former smoker. Have you smoked in the past 12 months: Yes. Aproximately how many cigarettes per day: 10. Hx Chewing Tobacco Use: No. Initiated information on smoking cessation: Yes. 'Breaking Loose' booklet given: 10/22/18. - Substance & Tx. History. Hx Alcohol Use: Yes. Hx Substance Use: Yes. Substance Use Type: Alcohol, Cocaine. Hx Substance Use Treatment: Yes ([facility] Detox July 2018). - Substances Abused. Alcohol. Route: Oral. Frequency: Daily. Amount used : 10 CANS OF 16 OUNCES OF BEER: 2 1/2 PINTS OF [place]GNA[place]. Age of first use: 15. Date of Last Use: 10/22/18. Crack. Route: Smoking. Frequency: Daily. Amount used: $200. Age of first use: 22. Date of Last Use: 10/22/18 Medical History: asthma, hypercholesterolemia Psychiatric History: Patient denies h/o psychiatric hospitalization and suicide attempt. Mr. Kinney states that he saw an outpatient psychiatrist four months ago at [facility] because he was attempting to receive SSI. He states there is nothing wrong with him and he has only seeked psychiatric care in hopes of receiving public assistance. As per pharmacy claims a prescription of prozac 40mg and seroquel 200mg was electronically sent to patient's pharmacy on 10/05/18. Patient informed of these medications and he responded, " I don't take them. i was trying to get SSI." Patient is unreliable as he has reported psychiatric hospitalizations in previous admissions. Patient denies current thoughts or urges to hurt self or others. Physical/Sexual Abuse/Trauma History: denies. Mental Status Exam - Mental Status Exam Alert and Oriented to: Time, Place, Person Cognitive Function: Good Patient Appearance: Well Groomed Mood: Withdrawn Affect: Mood Congruent Patient Behavior: Cooperative Speech Pattern: Appropriate Voice Loudness: Normal Thought Process: Intact, Goal Oriented Thought Disorder: Not Present Hallucinations: Denies Suicidal Ideation: Denies Homicidal Ideation: Denies Insight/Judgement: Poor Sleep: Fair Appetite: Fair Muscle strength/Tone: Normal Gait/Station: Normal Psychiatric Findings - Problem List ([place] 1, 2,3) (1) Alcohol dependence with withdrawal Status: Acute Qualifiers: Complication of substance-induced condition: uncomplicated Qualified Code(s ): F10.230 - Alcohol dependence with withdrawal, uncomplicated Comment: . (2) Cocaine dependence Status: Acute Qualifiers: Substance use status: uncomplicated Qualified Code(s): F14.20 - Cocaine dependence, uncomplicated Comment: . (3) Nicotine dependence Status: Acute Qualifiers: Nicotine product type: cigarettes Substance use status: in withdrawal Qualified Code(s): F17.213 - Nicotine dependence, cigarettes, with withdrawal (4) Substance induced mood disorder Status: Suspected (5) Mood disorder Status: Chronic (6) Non-compliant patient Status: Chronic - Initial Treatment Plan Initial Treatment Plan: Psychoeducation provided. Detoxification in progress. Patient made aware of the risk of refusing psychotropic medication.
--- NOTE | 2018-10-23 17:14 | PN ---
S CIWA - CIWA Score Nausea/Vomitin-No Nausea/No Vomiting Muscle Tremors: 3 Anxiety: 3 Agitation: 1-Slight > Activity Paroxysmal Sweats: 3 Orientation: 0-Oriented Tacttile Disturbances: 2-Mild Itch/Numbness/Burn Auditory Disturbances: 0-None Visual Disturbances: 2-Mild Sensitivity Headache: 0-None Present CIWA-Ar Total Score: 14 [facility] Progress Note (SOAP) Subjective: Sweating, Constipation, Anxious, Tremors. Objective: PATIENT A & O X 3, OBSERVED AMBULATING ON UNIT. IN NO ACUTE DISTRESS. 10/23/18 17:14 Vital Signs Temperature 96.7 F L 10/23/18 13:13 Pulse Rate 78 10/23/18 13:13 Respiratory Rate 18 10/23/18 13:13 Blood Pressure 103/65 10/23/18 13:13 O2 Sat by Pulse Oximetry (%) Laboratory Tests 10/23/18 10/23/18 06:30 06:30 WBC 7.4 RBC 4.38 Hgb 13.9 Hct 40.4 MCV 92.4 MCH 31.7 MCHC 34.3 RDW 12.9 Plt Count 216 MPV 9.9 Sodium 142 Potassium 3.9 Chloride 109 H Carbon Dioxide 25 Anion Gap 9 BUN 16 Creatinine 1.3 Creat Clearance w eGFR 57.31 Random Glucose 88 Calcium 9.0 Total Bilirubin 1.7 H AST 23 ALT 25 Alkaline Phosphatase 52 Total Protein 7.5 Albumin 4.1 LABS NOTED. RPR RESULT PENDING. 10/23/18 17:15 Assessment: 10/23/18 17:15 WITHDRAWAL SYMPTOMS. Plan: CONTINUE DETOX. INCREASE DAILY PO FLUID INTAKE.
[2018-10-23] MEDS: THIAMINE HCL 100 MG TABLET (FP) PO SCH (21:57)
[2018-10-24] MEDS: chlordiazePOXIDE HCL 25 MG CAPSULE PO SCH ×3 (05:36→17:28)
[2018-10-24] MEDS: PRENATAL VITAMINS W/ FOLIC ACID TABLET (FP) PO SCH (10:19)
--- NOTE | 2018-10-24 15:23 | PN ---
S CIWA - CIWA Score Nausea/Vomitin-No Nausea/No Vomiting Muscle Tremors: None Anxiety: 3 Agitation: 0-Normal Activity Paroxysmal Sweats: 3 Orientation: 0-Oriented Tacttile Disturbances: 2-Mild Itch/Numbness/Burn Auditory Disturbances: 0-None Visual Disturbances: 1-Very Mild Sensitivity Headache: 0-None Present CIWA-Ar Total Score: 9 [facility] Progress Note (SOAP) Subjective: Sweating, Constipation, Anxious. Objective: PATIENT A & O X 3, OBSERVED AMBULATING ON UNIT. IN NO ACUTE DISTRESS. 10/24/18 15:19 Vital Signs Temperature 98.3 F 10/24/18 14:07 Pulse Rate 67 10/24/18 14:07 Respiratory Rate 18 10/24/18 14:07 Blood Pressure 127/69 10/24/18 14:07 O2 Sat by Pulse Oximetry (%) Laboratory Tests 10/23/18 10/23/18 10/23/18 06:30 06:30 06:30 WBC 7.4 RBC 4.38 Hgb 13.9 Hct 40.4 MCV 92.4 MCH 31.7 MCHC 34.3 RDW 12.9 Plt Count 216 MPV 9.9 Sodium 142 Potassium 3.9 Chloride 109 H Carbon Dioxide 25 Anion Gap 9 BUN 16 Creatinine 1.3 Creat Clearance w eGFR 57.31 Random Glucose 88 Calcium 9.0 Total Bilirubin 1.7 H AST 23 ALT 25 Alkaline Phosphatase 52 Total Protein 7.5 Albumin 4.1 RPR Titer Nonreactive LABS NOTED. Assessment: 10/24/18 15:20 WITHDRAWAL SYMPTOMS. Plan: CONTINUE DETOX. INCREASE DAILY PO FLUID INTAKE. COLACE-SENNA BID ORDERED FOR CONSTIPATION.
[2018-10-24] MEDS: chlordiazePOXIDE 5 MG CAPSULE PO SCH (22:27)
[2018-10-24] MEDS: SENNOSIDES/DOCUSATE COMBO (SENNA PLUS) TABLET (UD) PO SCH (22:27)
[2018-10-24] MEDS: THIAMINE HCL 100 MG TABLET (FP) PO SCH (22:30)
[2018-10-25] MEDS: chlordiazePOXIDE 5 MG CAPSULE PO SCH ×3 (06:15→18:06)
[2018-10-25] MEDS: SENNOSIDES/DOCUSATE COMBO (SENNA PLUS) TABLET (UD) PO SCH ×2 (10:14→22:38)
[2018-10-25] MEDS: PRENATAL VITAMINS W/ FOLIC ACID TABLET (FP) PO SCH (10:14)
--- NOTE | 2018-10-25 10:30 | PN ---
S CIWA - CIWA Score Nausea/Vomitin-No Nausea/No Vomiting Muscle Tremors: 1-None Visible, but [place] Anxiety: 2 Agitation: 1-Slight > Activity Paroxysmal Sweats: No Perspiration Orientation: 0-Oriented Tacttile Disturbances: 0-None Auditory Disturbances: 0-None Visual Disturbances: 0-None Headache: 0-None Present CIWA-Ar Total Score: 4 [facility] Progress Note (SOAP) Subjective: feeling better less tremor mild sweating sleep better at night motivate to discuss aftercare with staff Objective: 10/25/18 10:28 Vital Signs Temperature 96 F L 10/25/18 09:32 Pulse Rate 106 H 10/25/18 09:32 Respiratory Rate 18 10/25/18 09:32 Blood Pressure 118/75 10/25/18 09:32 O2 Sat by Pulse Oximetry (%) Laboratory Last Values WBC 7.4 K/mm3 (4.0-10.0) 10/23/18 06:30 RBC 4.38 M/mm3 (4.00-5.60) 10/23/18 06:30 Hgb 13.9 GM/dL (11.7-16.9) 10/23/18 06:30 Hct 40.4 % (35.4-49) 10/23/18 06:30 MCV 92.4 fl (80-96) 10/23/18 06:30 MCH 31.7 pg (25.7-33.7) 10/23/18 06:30 MCHC 34.3 g/dl (32.0-35.9) 10/23/18 06:30 RDW 12.9 % (11.9-15.9) 10/23/18 06:30 Plt Count 216 K/MM3 (134-434) 10/23/18 06:30 MPV 9.9 fl (7.5-11.1) 10/23/18 06:30 Sodium 142 mmol/L (136-145) 10/23/18 06:30 Potassium 3.9 mmol/L (3.5-5.1) 10/23/18 06:30 Chloride 109 mmol/L (98-107) H 10/23/18 06:30 Carbon Dioxide 25 mmol/L (21-32) 10/23/18 06:30 Anion Gap 9 MMOL/L (8-16) 10/23/18 06:30 BUN 16 mg/dL (7-18) 10/23/18 06:30 Creatinine 1.3 mg/dL (0.55-1.3) 10/23/18 06:30 Creat Clearance w eGFR 57.31 (>60) 10/23/18 06:30 Random Glucose 88 mg/dL (74-106) 10/23/18 06:30 Calcium 9.0 mg/dL (8.5-10.1) 10/23/18 06:30 Total Bilirubin 1.7 mg/dL (0.2-1) H 10/23/18 06:30 AST 23 U/L (15-37) 10/23/18 06:30 ALT 25 U/L (13-61) 10/23/18 06:30 Alkaline Phosphatase 52 U/L (45-117) 10/23/18 06:30 Total Protein 7.5 g/dl (6.4-8.2) 10/23/18 06:30 Albumin 4.1 g/dl (3.4-5.0) 10/23/18 06:30 RPR Titer Nonreactive (NONREACTIVE) 10/23/18 06:30 lab noted anxiousness 10/25/18 10:29 Assessment: 10/25/18 10:29 mild alcohol withdrawal sx Plan: continue detox
[2018-10-25] MEDS: chlordiazePOXIDE HCL 10 MG CAPSULE PO SCH (22:37)
[2018-10-25] MEDS: THIAMINE HCL 100 MG TABLET (FP) PO SCH (22:37)
[2018-10-26] MEDS: chlordiazePOXIDE HCL 10 MG CAPSULE PO SCH ×2 (06:08→12:43)
[2018-10-26] MEDS: SENNOSIDES/DOCUSATE COMBO (SENNA PLUS) TABLET (UD) PO SCH (10:06)
[2018-10-26] MEDS: PRENATAL VITAMINS W/ FOLIC ACID TABLET (FP) PO SCH (10:06)
[2018-10-26 13:50] VITALS: BP 140/85; PULSE 88; TEMP 99.1
--- NOTE | 2018-10-26 14:34 | DS ---
[facility] Detox Discharge Summary Admission Date: 10/22/18 Discharge Date: 10/26/18 - History Present History: Alcohol Dependence Additional Comments: 53 years old male admitted on 10/22/18 for alcohol withdrawal stabilization completed detox regimen aftercare [facility] Physical Exam Results Vital Signs: Vital Signs Temperature 99.1 F 10/26/18 13:49 Pulse Rate 88 10/26/18 13:49 Respiratory Rate 18 10/26/18 13:49 Blood Pressure 140/85 10/26/18 13:49 O2 Sat by Pulse Oximetry (%) Pertinent Admission Physical Exam Findings: alcohol withdrawal sx Laboratory Last Values WBC 7.4 K/mm3 (4.0-10.0) 10/23/18 06:30 RBC 4.38 M/mm3 (4.00-5.60) 10/23/18 06:30 Hgb 13.9 GM/dL (11.7-16.9) 10/23/18 06:30 Hct 40.4 % (35.4-49) 10/23/18 06:30 MCV 92.4 fl (80-96) 10/23/18 06:30 MCH 31.7 pg (25.7-33.7) 10/23/18 06:30 MCHC 34.3 g/dl (32.0-35.9) 10/23/18 06:30 RDW 12.9 % (11.9-15.9) 10/23/18 06:30 Plt Count 216 K/MM3 (134-434) 10/23/18 06:30 MPV 9.9 fl (7.5-11.1) 10/23/18 06:30 Sodium 142 mmol/L (136-145) 10/23/18 06:30 Potassium 3.9 mmol/L (3.5-5.1) 10/23/18 06:30 Chloride 109 mmol/L (98-107) H 10/23/18 06:30 Carbon Dioxide 25 mmol/L (21-32) 10/23/18 06:30 Anion Gap 9 MMOL/L (8-16) 10/23/18 06:30 BUN 16 mg/dL (7-18) 10/23/18 06:30 Creatinine 1.3 mg/dL (0.55-1.3) 10/23/18 06:30 Creat Clearance w eGFR 57.31 (>60) 10/23/18 06:30 Random Glucose 88 mg/dL (74-106) 10/23/18 06:30 Calcium 9.0 mg/dL (8.5-10.1) 10/23/18 06:30 Total Bilirubin 1.7 mg/dL (0.2-1) H 10/23/18 06:30 AST 23 U/L (15-37) 10/23/18 06:30 ALT 25 U/L (13-61) 10/23/18 06:30 Alkaline Phosphatase 52 U/L (45-117) 10/23/18 06:30 Total Protein 7.5 g/dl (6.4-8.2) 10/23/18 06:30 Albumin 4.1 g/dl (3.4-5.0) 10/23/18 06:30 RPR Titer Nonreactive (NONREACTIVE) 10/23/18 06:30 lab noted - Treatment Hospital Course: Detox Protocol Followed, Detoxed Safely, Responded well, Discharged Condition Good, Rehab Referral Accepted Patient has [facility] - Medication Discharge Medications: Ambulatory Orders NK [No Known Home Medication] 12/09/17 - Diagnosis (1) Alcohol dependence with withdrawal Current Visit: Yes Status: Acute Qualifiers: Complication of substance-induced condition: uncomplicated Qualified Code(s ): F10.230 - Alcohol dependence with withdrawal, uncomplicated (2) Nicotine dependence Current Visit: Yes Status: Acute Qualifiers: Nicotine product type: cigarettes Substance use status: in withdrawal Qualified Code(s): F17.213 - Nicotine dependence, cigarettes, with withdrawal (3) Substance induced mood disorder Current Visit: Yes Status: Suspected (4) Asthma Current Visit: Yes Status: Chronic Qualifiers: Asthma severity: mild Asthma persistence: intermittent Asthma complication type: with status asthmaticus Qualified Code(s): J45.22 - Mild intermittent asthma with status asthmaticus - AMA Did Patient Leave Against Medical Advice: No
== END 2018-10-26 15:41 | disposition other institution (70) | DRG 774 ==
LOC: YASAS 12:56 → Y3N 15:44
PROVIDERS: ADMIT Surgery; ATTEND Surgery
PROC: HZ2ZZZZ Detoxification Services for Substance Abuse Treatment (ICD-10-PCS; principal; 2018-10-22)
DX: F10.230 Alcohol dependence with withdrawal, uncomplicated (principal); F14.20 Cocaine dependence, uncomplicated; F17.213 Nicotine dependence, cigarettes, with withdrawal; F19.24 Other psychoactive substance dependence with psychoactive substance-induced mood disorder; F31.9 Bipolar disorder, unspecified; E78.00 Pure hypercholesterolemia, unspecified; J45.22 Mild intermittent asthma with status asthmaticus; K59.00 Constipation, unspecified; E66.9 Obesity, unspecified; Z68.33 Body mass index [BMI] 33.0-33.9, adult; Z91.19 Patient's noncompliance with other medical treatment and regimen; Z88.0 Allergy status to penicillin; Z91.018 Allergy to other foods
CPT/HCPCS: 36415; 80053; 85027; 86593

== ENCOUNTER 2018-10-26 15:49 | Inpatient (IN) | payer OTHER ==
--- NOTE | 2018-10-26 14:35 | HP ---
[facility] Rehab Assess/Revision - Admission History Admitted to Rehab from: [facility] Date of Admission to Rehab: 10/26/18 - Findings Detox History & Physical reviewed: Yes Concur with findings: Yes Comments/Additional Findings: transferred from detox to rehab admission as per protocol Inpatient Rehab Admission - Rehab Decision to Admit Inpatient rehab admission?: Yes - Initial Determination Are CD services needed?: Yes Free of communicable disease: Yes Not in need of hospitalization: Yes - Rehab Admission Criteria Previous failed treatment: Yes Poor recovery environment: Yes Comorbidities: Yes Lacks judgement: No Patient is meeting Inpatient Rehab admission criteria:: Yes
[~2018-10-26 15:49] MED LIST: ACETAMINOPHEN 325 MG TABLET (FP) PO PRN; IBUPROFEN 400 MG TABLET (FP) PO PRN; LOPERAMIDE HCL 2 MG CAPSULE PO PRN; MAG HYDROX/AL HYDROX/SIMETH 30 ML UNIT-DOSE CUP PO PRN; MAGNESIUM CITRATE 300 ML BOTTLE PO PRN; MAGNESIUM HYDROX 2400MG/30ML ORAL SUSPENSION 30 ML CUP PO PRN; MENTHOL/PHENOL 1 EACH UD MM PRN; NICOTINE 14 MG/24 HOURS TOPICAL PATCH TD PRN; NICOTINE POLACRILEX 2 MG GUM BC PRN; P-EPHED 60MG/TRIPROLIDI 2.5MG TABLET PO PRN; guaiFENesin/D-METHORPHAN HB 10 ML UNIT-DOSE CUPS PO PRN
[2018-10-26 18:18] VITALS: BMI 33.2
[2018-10-26] MEDS: THIAMINE HCL 100 MG TABLET (FP) PO SCH (21:17)
[2018-10-26] MEDS ORDERED: MELATONIN 5 MG TABLETS PO PRN (22:00)
[2018-10-27] MEDS: PRENATAL VITAMINS W/ FOLIC ACID TABLET (FP) PO SCH (10:38)
[2018-10-27] MEDS: THIAMINE HCL 100 MG TABLET (FP) PO SCH (21:52)
[2018-10-28] MEDS: PRENATAL VITAMINS W/ FOLIC ACID TABLET (FP) PO SCH (10:10)
[2018-10-28] MEDS: THIAMINE HCL 100 MG TABLET (FP) PO SCH (21:38)
[2018-10-29] MEDS: PRENATAL VITAMINS W/ FOLIC ACID TABLET (FP) PO SCH (10:57)
[2018-10-29] MEDS: THIAMINE HCL 100 MG TABLET (FP) PO SCH (21:17)
[2018-10-30] MEDS: PRENATAL VITAMINS W/ FOLIC ACID TABLET (FP) PO SCH (10:06)
[2018-10-30] MEDS: THIAMINE HCL 100 MG TABLET (FP) PO SCH (23:22)
[2018-10-31] MEDS: PRENATAL VITAMINS W/ FOLIC ACID TABLET (FP) PO SCH (10:13)
[2018-10-31] MEDS: THIAMINE HCL 100 MG TABLET (FP) PO SCH (21:57)
[2018-11-01] MEDS: PRENATAL VITAMINS W/ FOLIC ACID TABLET (FP) PO SCH (10:09)
[2018-11-01] MEDS: THIAMINE HCL 100 MG TABLET (FP) PO SCH (22:02)
[2018-11-02] MEDS: PRENATAL VITAMINS W/ FOLIC ACID TABLET (FP) PO SCH (10:35)
[2018-11-02] MEDS: THIAMINE HCL 100 MG TABLET (FP) PO SCH (22:10)
[2018-11-03] MEDS: PRENATAL VITAMINS W/ FOLIC ACID TABLET (FP) PO SCH (10:34)
[2018-11-03] MEDS: THIAMINE HCL 100 MG TABLET (FP) PO SCH (22:49)
[2018-11-04] MEDS: PRENATAL VITAMINS W/ FOLIC ACID TABLET (FP) PO SCH (10:41)
[2018-11-04] MEDS: THIAMINE HCL 100 MG TABLET (FP) PO SCH (21:55)
[2018-11-05] MEDS: PRENATAL VITAMINS W/ FOLIC ACID TABLET (FP) PO SCH (11:53)
[2018-11-05] MEDS: THIAMINE HCL 100 MG TABLET (FP) PO SCH (21:49)
[2018-11-06] MEDS: PRENATAL VITAMINS W/ FOLIC ACID TABLET (FP) PO SCH (10:45)
[2018-11-06] MEDS: THIAMINE HCL 100 MG TABLET (FP) PO SCH (21:44)
[2018-11-07] MEDS: PRENATAL VITAMINS W/ FOLIC ACID TABLET (FP) PO SCH (10:17)
[2018-11-07] MEDS: THIAMINE HCL 100 MG TABLET (FP) PO SCH (23:02)
[2018-11-08] MEDS: PRENATAL VITAMINS W/ FOLIC ACID TABLET (FP) PO SCH (10:49)
[2018-11-08] MEDS: THIAMINE HCL 100 MG TABLET (FP) PO SCH (22:34)
[2018-11-09 06:44] VITALS: BP 133/69; PULSE 76; TEMP 96.8
[2018-11-09] MEDS: PRENATAL VITAMINS W/ FOLIC ACID TABLET (FP) PO SCH (10:50)
--- NOTE | 2018-11-09 11:00 | PN ---
[facility] Progress Note Note: REHAB DISCHARGE NOTE: PATIENT SCHEDULED FOR DISCHARGE TODAY AND REPORTS ACCOMPLISHING ALL REHAB GOALS. PATIENT IS MEDICALLY STABLE AND DENIES SI/HI. AFTERCARE SCHEDULED FOR [facility] ON 11/13/18 AT 2:45PM AND PATIENT ENCOURAGED TO ATTEND GROUP MEETINGS TO PREVENT RELAPSE. ENCOURAGEMENT ALSO GIVEN TO FOLLOW UP WITH PCP WITHIN ONE WEEK OF DISCHARGE TO CONTINUE MEDICAL MANAGEMENT. Vital Signs Temperature 96.8 F L 11/09/18 06:43 Pulse Rate 76 11/09/18 06:43 Respiratory Rate 18 11/09/18 06:43 Blood Pressure 133/69 11/09/18 06:43 O2 Sat by Pulse Oximetry (%) Home Medication List Medication Instructions Recorded Confirmed Type NK [No Known Home Medication] 12/09/17 10/26/18 History Active Medications Generic Name Dose Route Start Last Admin Trade Name Freq PRN Reason Stop Dose Admin Acetaminophen 650 mg 10/26/18 14:36 Tylenol - PO Q4H PRN FEVER Al Hydroxide/Mg Hydroxide 30 ml 10/26/18 14:36 Mylanta Oral Suspension - PO Q6H PRN DYSPEPSIA Eucalyptus/Menthol/Phenol/Sorbitol 1 each 10/26/18 14:36 Cepastat Lozenge - MM Q4H PRN SORE THROAT Guaifenesin 10 ml 10/26/18 14:36 Robitussin Dm - PO Q6H PRN COUGH Ibuprofen 400 mg 10/26/18 14:36 Motrin - PO Q6H PRN Pain level 4-6 Loperamide HCl 4 mg 10/26/18 14:36 Imodium - PO Q6H PRN DIARRHEA Magnesium Citrate 300 ml 10/26/18 14:36 Citroma - PO Q48H PRN CONSTIPATION Magnesium Hydroxide 30 ml 10/26/18 14:36 11/03/18 10:35 Milk Of Magnesia - PO 30 ml DAILY PRN Administration CONSTIPATION Melatonin 5 mg 10/26/18 22:00 Melatonin PO HS PRN INSOMNIA Nicotine 14 mg 10/26/18 14:36 Nicoderm Patch - TD DAILY PRN NICOTINE REPLACEMENT RX Nicotine Polacrilex 2 mg 10/26/18 14:36 Nicorette Gum - BC Q2H PRN NICOTINE REPLACEMENT RX Multivit/Folic Acid/Iron 1 tab 10/27/18 10:00 11/09/18 10:50 Vitamins (Sjr) - PO 1 tab DAILY MELANIE Administration Pseudoephedrine/Triprolidine 1 combo 10/26/18 14:36 Actifed - PO TID PRN NASAL CONGESTION Thiamine HCl 100 mg 10/26/18 22:00 11/08/18 22:34 Vitamin B1 - PO Not Given HS MELANIE
== END 2018-11-09 11:00 | disposition home or self-care (01) | DRG 772 ==
LOC: YASAS 15:49 → Y3W 15:50
PROVIDERS: ADMIT Neuromusculoskeletal Medicine & OMM; ATTEND Neuromusculoskeletal Medicine & OMM
PROC: HZ42ZZZ Group Counseling for Substance Abuse Treatment, Cognitive-Behavioral (ICD-10-PCS; principal; 2018-10-26)
DX: F10.20 Alcohol dependence, uncomplicated (principal); F14.20 Cocaine dependence, uncomplicated; F17.210 Nicotine dependence, cigarettes, uncomplicated; F39 Unspecified mood [affective] disorder; J45.909 Unspecified asthma, uncomplicated; E66.9 Obesity, unspecified; Z68.33 Body mass index [BMI] 33.0-33.9, adult; Z88.0 Allergy status to penicillin; Z91.14 Patient's other noncompliance with medication regimen

== ENCOUNTER 2019-04-20 14:10 | Inpatient (IN) | payer OTHER ==
[2019-04-20 16:32] VITALS: BMI 31.5
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
[2019-04-20] MEDS ORDERED: MAGNESIUM CITRATE 300 ML BOTTLE PO PRN (17:55)
[2019-04-20] MEDS ORDERED: IBUPROFEN 400 MG TABLET (FP) PO PRN (17:55)
[2019-04-20] MEDS ORDERED: NICOTINE POLACRILEX 2 MG GUM BUC PRN (17:55)
[2019-04-20] MEDS ORDERED: hydrOXYzine PAMOATE 25 MG CAPSULE (FP) PO PRN (17:55)
[2019-04-20] MEDS ORDERED: BISMUTH SUBSALICYLATE 524 MG/30 ML UD PO PRN (17:55)
[2019-04-20] MEDS ORDERED: MELATONIN 5 MG TABLETS PO PRN (17:55)
[2019-04-20] MEDS ORDERED: ACETAMINOPHEN 325 MG TABLET (FP) PO PRN (17:55)
[2019-04-20] MEDS ORDERED: MAG HYDROX/AL HYDROX/SIMETH 30 ML UNIT-DOSE CUP PO PRN (17:55)
[2019-04-20] MEDS ORDERED: MAGNESIUM HYDROX 2400MG/30ML ORAL SUSPENSION 30 ML CUP PO PRN (17:55)
[2019-04-20] MEDS ORDERED: chlordiazePOXIDE HCL 10 MG CAPSULE PO PRN (17:56)
[2019-04-20] MEDS: THIAMINE HCL 100 MG TABLET (FP) PO SCH (22:38)
[2019-04-20] MEDS: chlordiazePOXIDE HCL 25 MG CAPSULE PO SCH (22:38)
[2019-04-21] MEDS: chlordiazePOXIDE HCL 25 MG CAPSULE PO SCH ×3 (06:37→22:14)
[2019-04-21 10:10] LABS: HEMATOCRIT 41.6 % (35.4-49); HEMOGLOBIN 14.1 GM/dL (11.7-16.9); MCH 31.6 pg (25.7-33.7); MEAN CELL VOLUME 93.1 fl (80-96); MEAN PLT VOLUME 9.3 fl (7.5-11.1); PLATELET COUNT 203 K/MM3 (134-434); RBC 4.46 M/mm3 (4.00-5.60); RDW 13.3 % (11.9-15.9); WHITE BLOOD COUNT 5.9 K/mm3 (4.0-10.0)
[2019-04-21] MEDS: PRENATAL VITAMINS W/ FOLIC ACID TABLET (FP) PO SCH (10:19)
[2019-04-21 10:20] LABS: ALBUMIN 4.1 g/dl (3.4-5.0); BILIRUBIN,TOTAL 1.7 mg/dL (0.2-1); BLOOD UREA NITROGEN 16.4 mg/dL (7-18); CALCIUM 9.7 mg/dL (8.5-10.1); CREATININE 1.1 mg/dL (0.55-1.3); TOT PROT 7.5 g/dl (6.4-8.2)
--- NOTE | 2019-04-21 11:53 | PN ---
[facility] CIWA - CIWA Score Nausea/Vomitin-Mild Nausea/No Vomiting Muscle Tremors: 3 Anxiety: 4-Mod. Anxious/Guarded Agitation: 3 Paroxysmal Sweats: 2 Orientation: 0-Oriented Tacttile Disturbances: 0-None Auditory Disturbances: 0-None Visual Disturbances: 0-None Headache: 0-None Present CIWA-Ar Total Score: 13 S Progress Note (SOAP) Subjective: 53 years old male multiple detox with one rehab admission from [facility] was admitted on 04/20/19 for alcohol withdrawal sx management doing well with librium detox regimen ambulating on hallway social with peer reporting taking prozac and seroquel for depression and hallucinations, last dose unknown psychiatric referral patient denies hallucinations denies suicidal ideation Objective: 04/21/19 11:57 Vital Signs Temperature 97.5 F L 04/21/19 09:16 Pulse Rate 75 04/21/19 09:16 Respiratory Rate 18 04/21/19 09:16 Blood Pressure 113/70 04/21/19 09:16 O2 Sat by Pulse Oximetry (%) Laboratory Last Values WBC 5.9 K/mm3 (4.0-10.0) 04/21/19 07:00 RBC 4.46 M/mm3 (4.00-5.60) 04/21/19 07:00 Hgb 14.1 GM/dL (11.7-16.9) 04/21/19 07:00 Hct 41.6 % (35.4-49) 04/21/19 07:00 MCV 93.1 fl (80-96) 04/21/19 07:00 MCH 31.6 pg (25.7-33.7) 04/21/19 07:00 MCHC 34.0 g/dl (32.0-35.9) 04/21/19 07:00 RDW 13.3 % (11.9-15.9) 04/21/19 07:00 Plt Count 203 K/MM3 (134-434) 04/21/19 07:00 MPV 9.3 fl (7.5-11.1) 04/21/19 07:00 Sodium 143 mmol/L (136-145) 04/21/19 07:00 Potassium 4.0 mmol/L (3.5-5.1) 04/21/19 07:00 Chloride 106 mmol/L (98-107) 04/21/19 07:00 Carbon Dioxide 32 mmol/L (21-32) 04/21/19 07:00 Anion Gap 5 MMOL/L (8-16) L 04/21/19 07:00 BUN 16.4 mg/dL (7-18) 04/21/19 07:00 Creatinine 1.1 mg/dL (0.55-1.3) 04/21/19 07:00 Est GFR (CKD-EPI)AfAm 87.13 04/21/19 07:00 Est GFR (CKD-EPI)NonAf 75.17 04/21/19 07:00 Random Glucose 74 mg/dL (74-106) 04/21/19 07:00 Calcium 9.7 mg/dL (8.5-10.1) 04/21/19 07:00 Total Bilirubin 1.7 mg/dL (0.2-1) H 04/21/19 07:00 AST 36 U/L (15-37) 04/21/19 07:00 ALT 35 U/L (13-61) 04/21/19 07:00 Alkaline Phosphatase 52 U/L (45-117) 04/21/19 07:00 Total Protein 7.5 g/dl (6.4-8.2) 04/21/19 07:00 Albumin 4.1 g/dl (3.4-5.0) 04/21/19 07:00 lab noted Assessment: 04/21/19 11:57 alcohol withdrawal sx alert oriented x 3 coherently steady gait tolerate food and fluid well no muscles cramping today Plan: continue librium detox regimen
[2019-04-21] MEDS: THIAMINE HCL 100 MG TABLET (FP) PO SCH (22:15)
[2019-04-22] MEDS: chlordiazePOXIDE 5 MG CAPSULE PO SCH ×3 (06:13→22:12)
[2019-04-22] MEDS: ACETAMINOPHEN 325 MG TABLET (FP) PO PRN (06:15)
--- NOTE | 2019-04-22 09:38 | CONSULT ---
[facility] Psychiatric Consult - Data Date of interview: 04/22/19 Admission source: [facility] Identifying data: Patient is a 53 year old single male, without children, unemployed, domiciled, and is supported by public assistance. This is one of multiple admissions for patient. Patient admitted to for alcohol and cocaine dependence. Substance Abuse History: Smoking Cessation. Smoking history: Former smoker. Have you smoked in the past 12 months: Yes. Aproximately how many cigarettes per day: 10. Hx Chewing Tobacco Use: No. Initiated information on smoking cessation: No. - Substances abused. Alcohol. Substance route: Oral. Frequency: 3-6 times per week. Amount used: 5 pints of henessay, 6 16oz beer. Age of first use: 14. Date of last use: 04/20/19. Crack. Substance route: Smoking. Frequency: 3-6 times per week. Amount used: $150. Age of first use: 20. Date of last use: 04/20/19. Cocaine. Substance route: Inhalation. Frequency: 3-6 times per week. Amount used: $150. Age of first use: 20. Date of last use: 04/20/19 Medical History: Asthma, hypertension, Hypercholesterolemia Psychiatric History: Patient denies h/o psychiatric hospitalization and suicide attempt. State he was seeing a psychiatrist as an attempt to receive SSI and was prescribed medications. As per external records patient is prescribed prozac 40mg + Seroquel 200mg HS. Reports that he does not take the medications as he was only attempting to receive SSI. States he was denied SSI 3.5 months ago and now will have to find employment. At present, patient reports stable mood. No psychosis, manic or depressive symptoms noted. Physical/Sexual Abuse/Trauma History: denies. Mental Status Exam - Mental Status Exam Alert and Oriented to: Time, Place, Person Cognitive Function: Good Patient Appearance: Well Groomed Mood: Euthymic Affect: Mood Congruent Patient Behavior: Cooperative Speech Pattern: Appropriate Voice Loudness: Normal Thought Process: Goal Oriented Thought Disorder: Not Present Hallucinations: Denies Suicidal Ideation: Denies Homicidal Ideation: Denies Insight/Judgement: Poor Sleep: Fair Appetite: Fair Muscle strength/Tone: Normal Gait/Station: Normal Psychiatric Findings - Problem List ([place] 1, 2,3) (1) Alcohol dependence with withdrawal Status: Acute Qualifiers: Complication of substance-induced condition: uncomplicated Qualified Code(s ): F10.230 - Alcohol dependence with withdrawal, uncomplicated Comment: . (2) Cocaine dependence Status: Acute Qualifiers: Substance use status: uncomplicated Qualified Code(s): F14.20 - Cocaine dependence, uncomplicated Comment: . (3) Nicotine dependence Status: Acute Qualifiers: Nicotine product type: cigarettes Substance use status: in withdrawal Qualified Code(s): F17.213 - Nicotine dependence, cigarettes, with withdrawal (4) Non-compliant patient Status: Chronic (5) Substance induced mood disorder Status: Suspected - Initial Treatment Plan Initial Treatment Plan: Psychoeducation provided. Detoxification in progress. Patient refuses to accept psychotropic medications. States he does not take medication. Observation.
[2019-04-22] MEDS: PRENATAL VITAMINS W/ FOLIC ACID TABLET (FP) PO SCH (10:28)
[2019-04-22] MEDS: MENTHOL/PHENOL 1 EACH UD MM PRN ×2 (10:28→22:14)
--- NOTE | 2019-04-22 14:11 | PN ---
S CIWA - CIWA Score Nausea/Vomitin-Mild Nausea/No Vomiting Muscle Tremors: 2 Anxiety: 3 Agitation: 2 Paroxysmal Sweats: No Perspiration Orientation: 0-Oriented Tacttile Disturbances: 0-None Auditory Disturbances: 0-None Visual Disturbances: 0-None Headache: 2-Mild CIWA-Ar Total Score: 10 S Progress Note (SOAP) Subjective: alert,irritable,anxious,interrupted sleep, Objective: 04/22/19 14:11 Vital Signs Temperature 98.2 F 04/22/19 13:17 Pulse Rate 81 04/22/19 13:17 Respiratory Rate 18 04/22/19 13:17 Blood Pressure 106/68 04/22/19 13:17 O2 Sat by Pulse Oximetry (%) Assessment: 04/22/19 14:11 withdrawal symptom Plan: continue detox librium regimen
[2019-04-22] MEDS: THIAMINE HCL 100 MG TABLET (FP) PO SCH (22:12)
[2019-04-23] MEDS ORDERED: chlordiazePOXIDE HCL 10 MG CAPSULE PO PRN
[2019-04-23] MEDS: chlordiazePOXIDE HCL 10 MG CAPSULE PO SCH ×3 (06:00→22:22)
[2019-04-23] MEDS: PRENATAL VITAMINS W/ FOLIC ACID TABLET (FP) PO SCH (10:10)
[2019-04-23] MEDS: ACETAMINOPHEN 325 MG TABLET (FP) PO PRN (10:11)
[2019-04-23] MEDS: MENTHOL/PHENOL 1 EACH UD MM PRN ×2 (10:11→22:23)
--- NOTE | 2019-04-23 11:59 | PN ---
S CIWA - CIWA Score Nausea/Vomitin-Mild Nausea/No Vomiting Muscle Tremors: 2 Anxiety: 2 Agitation: 2 Paroxysmal Sweats: No Perspiration Orientation: 0-Oriented Tacttile Disturbances: 0-None Auditory Disturbances: 0-None Visual Disturbances: 0-None Headache: 1-Very Mild CIWA-Ar Total Score: 8 S Progress Note (SOAP) Subjective: alert,irritable,anxious,interrupted sleep Objective: 04/23/19 11:57 Vital Signs Temperature 97.4 F L 04/23/19 09:36 Pulse Rate 84 04/23/19 09:36 Respiratory Rate 18 04/23/19 09:36 Blood Pressure 132/76 04/23/19 09:36 O2 Sat by Pulse Oximetry (%) 04/23/19 11:58 withdrawal symptom Assessment: 04/23/19 11:58 withdrawal symptom Plan: continue detox librium regimen,[id number] in am
[2019-04-23] MEDS: THIAMINE HCL 100 MG TABLET (FP) PO SCH (22:23)
[2019-04-24] MEDS ORDERED: chlordiazePOXIDE HCL 10 MG CAPSULE PO ONE (05:00)
[2019-04-24] MEDS: MENTHOL/PHENOL 1 EACH UD MM PRN (05:48)
--- NOTE | 2019-04-24 08:21 | DS ---
[facility] Detox Discharge Summary Admission Date: 04/20/19 Discharge Date: 04/24/19 - History Present History: Alcohol Dependence, Cocaine Dependence Additional Comments: Pt is a 53 y/o male with a hx of alcohol and cocaine use disorder who completed detox and discharged today. Pertinent Past History: Asthma Hx Bipolar Disorder - Physical Exam Results Vital Signs: Alert o x 3. OOB Ambulating with steady Gait NAD Vital Signs Temperature 98.4 F 04/24/19 05:58 Pulse Rate 69 04/24/19 05:58 Respiratory Rate 18 04/24/19 05:58 Blood Pressure 110/74 04/24/19 05:58 O2 Sat by Pulse Oximetry (%) Pertinent Admission Physical Exam Findings: Laboratory Tests 04/21/19 04/21/19 04/21/19 07:00 07:00 07:00 WBC 5.9 RBC 4.46 Hgb 14.1 Hct 41.6 MCV 93.1 MCH 31.6 MCHC 34.0 RDW 13.3 Plt Count 203 MPV 9.3 Sodium 143 Potassium 4.0 Chloride 106 Carbon Dioxide 32 Anion Gap 5 L BUN 16.4 Creatinine 1.1 Est GFR (CKD-EPI)AfAm 87.13 Est GFR (CKD-EPI)NonAf 75.17 Random Glucose 74 Calcium 9.7 Total Bilirubin 1.7 H AST 36 ALT 35 Alkaline Phosphatase 52 Total Protein 7.5 Albumin 4.1 RPR Titer Nonreactive - Treatment Hospital Course: Detox Protocol Followed, Detoxed Safely, Responded well, Discharged Condition Good, Rehab Referral Accepted Patient has Accepted a Rehab Referral to: [facility] - Medication Discharge Medications: Ambulatory Orders NK [No Known Home Medication] 12/09/17 - Diagnosis (1) Alcohol dependence with withdrawal Status: Acute Qualifiers: Complication of substance-induced condition: uncomplicated Qualified Code(s ): F10.230 - Alcohol dependence with withdrawal, uncomplicated (2) Cocaine dependence Status: Acute Qualifiers: Substance use status: uncomplicated Qualified Code(s): F14.20 - Cocaine dependence, uncomplicated (3) Asthma Status: Chronic Qualifiers: Asthma severity: mild Asthma persistence: unspecified Asthma complication type: uncomplicated Qualified Code(s): J45.909 - Unspecified asthma, uncomplicated (4) Nicotine dependence Status: Acute Qualifiers: Nicotine product type: cigarettes Substance use status: in withdrawal Qualified Code(s): F17.213 - Nicotine dependence, cigarettes, with withdrawal - AMA Did Patient Leave Against Medical Advice: No
[2019-04-24 09:23] VITALS: BP 121/75; PULSE 68; TEMP 98.5
[2019-04-24] MEDS: PRENATAL VITAMINS W/ FOLIC ACID TABLET (FP) PO SCH (10:45)
== END 2019-04-24 10:05 | disposition home or self-care (01) | DRG 774 ==
LOC: YASAS 14:10 → Y3N 18:12
PROVIDERS: ADMIT Surgery; ATTEND Surgery
PROC: HZ2ZZZZ Detoxification Services for Substance Abuse Treatment (ICD-10-PCS; principal; 2019-04-20)
DX: F10.230 Alcohol dependence with withdrawal, uncomplicated (principal); F14.20 Cocaine dependence, uncomplicated; F17.213 Nicotine dependence, cigarettes, with withdrawal; F19.24 Other psychoactive substance dependence with psychoactive substance-induced mood disorder; F31.9 Bipolar disorder, unspecified; I10 Essential (primary) hypertension; J45.20 Mild intermittent asthma, uncomplicated; E78.00 Pure hypercholesterolemia, unspecified
CPT/HCPCS: 36415; 80053; 85027; 86593

== ENCOUNTER 2019-09-22 10:22 | Inpatient (IN) | payer OTHER ==
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
[2019-09-22] MEDS ORDERED: ACETAMINOPHEN 325 MG TABLET (FP) PO PRN ×2 (11:22)
[2019-09-22] MEDS ORDERED: MAGNESIUM CITRATE 300 ML BOTTLE PO PRN (11:22)
[2019-09-22] MEDS ORDERED: MELATONIN 5 MG TABLETS PO PRN (11:22)
[2019-09-22] MEDS ORDERED: METHOCARBAMOL 500 MG TABLET PO PRN (11:22)
[2019-09-22] MEDS ORDERED: hydrOXYzine PAMOATE 25 MG CAPSULE (FP) PO PRN (11:22)
[2019-09-22] MEDS ORDERED: MAG HYDROX/AL HYDROX/SIMETH 30 ML UNIT-DOSE CUP PO PRN (11:22)
[2019-09-22] MEDS ORDERED: chlordiazePOXIDE HCL 25 MG CAPSULE PO PRN (11:22)
[2019-09-22] MEDS ORDERED: IBUPROFEN 400 MG TABLET (FP) PO PRN (11:22)
[2019-09-22] MEDS ORDERED: BISMUTH SUBSALICYLATE 262 MG/15 ML BTL PO PRN (11:22)
[2019-09-22] MEDS ORDERED: MAGNESIUM HYDROX 2400MG/30ML ORAL SUSPENSION 30 ML CUP PO PRN (11:22)
[2019-09-22 11:41] VITALS: BMI 32.1
[2019-09-22] MEDS: chlordiazePOXIDE HCL 25 MG CAPSULE PO SCH ×3 (15:03→22:40)
[2019-09-22] MEDS: NICOTINE 7 MG/24 HOURS TOPICAL PATCH TD SCH (15:03)
[2019-09-22 16:26] LABS: HEMATOCRIT 42.1 % (35.4-49); MCH 30.9 pg (25.7-33.7); MCHC 33.2 g/dl (32.0-35.9); MEAN CELL VOLUME 93.1 fl (80-96); MEAN PLT VOLUME 9.8 fl (7.5-11.1); PLATELET COUNT 244 K/MM3 (134-434); RBC 4.52 M/mm3 (4.00-5.60); RDW 13.3 % (11.9-15.9); WHITE BLOOD COUNT 7.1 K/mm3 (4.0-10.0)
[2019-09-22 16:58] LABS: BILIRUBIN,TOTAL 1.4 mg/dL (0.2-1); BLOOD UREA NITROGEN 19.8 mg/dL (7-18); CALCIUM 9.6 mg/dL (8.5-10.1); CREATININE 1.3 mg/dL (0.55-1.3); POTASSIUM 4.2 mmol/L (3.5-5.1); TOT PROT 7.5 g/dl (6.4-8.2)
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
--- NOTE | 2019-09-22 18:35 | PN ---
[facility] Progress Note Note: nursing requesting cough syrup as part of admission profile meds pt denies c/o states some cough w/ smoking and " running the streets out there " . O : resp - NAD , lungs CTA B/l no accessory mm use , pulse ox 97% on RA P : Robitussin prn
[2019-09-22] MEDS: THIAMINE HCL 100 MG TABLET (FP) PO SCH (22:40)
[2019-09-23] MEDS: guaiFENesin 200 MG/10 ML 10 ML UNIT-DOSE CUPS PO PRN (05:27)
[2019-09-23] MEDS: MENTHOL/PHENOL 1 EACH UD MM PRN ×3 (05:27→18:06)
[2019-09-23] MEDS: chlordiazePOXIDE HCL 25 MG CAPSULE PO SCH ×4 (05:27→22:59)
[2019-09-23] MEDS: PRENATAL VITAMINS W/ FOLIC ACID TABLET (FP) PO SCH (10:25)
[2019-09-23] MEDS: NICOTINE 7 MG/24 HOURS TOPICAL PATCH TD SCH (10:26)
--- NOTE | 2019-09-23 14:22 | PN ---
S CIWA - CIWA Score Nausea/Vomitin-Mild Nausea/No Vomiting Muscle Tremors: 3 Anxiety: 4-Mod. Anxious/Guarded Agitation: 1-Slight > Activity Paroxysmal Sweats: 2 Orientation: 0-Oriented Tacttile Disturbances: 1-Very Mild Itch/Numbness Auditory Disturbances: 0-None Visual Disturbances: 1-Very Mild Sensitivity Headache: 0-None Present CIWA-Ar Total Score: 13 [facility] Progress Note (SOAP) Subjective: 54 years old male admitted on 09/22/19 for alcohol withdrawal sx management treating with librium detox regiment feeling ok today ate breakfast and lunch in day room with peers c/o itchy throat encourage cepastat Objective: 09/23/19 14:54 Vital Signs Temperature 97.0 F L 09/23/19 12:34 Pulse Rate 67 09/23/19 12:34 Respiratory Rate 18 09/23/19 12:34 Blood Pressure 121/74 09/23/19 12:34 O2 Sat by Pulse Oximetry (%) Laboratory Last Values WBC 7.1 K/mm3 (4.0-10.0) 09/22/19 11:30 RBC 4.52 M/mm3 (4.00-5.60) 09/22/19 11:30 Hgb 14.0 GM/dL (11.7-16.9) 09/22/19 11:30 Hct 42.1 % (35.4-49) 09/22/19 11:30 MCV 93.1 fl (80-96) 09/22/19 11:30 MCH 30.9 pg (25.7-33.7) 09/22/19 11:30 MCHC 33.2 g/dl (32.0-35.9) 09/22/19 11:30 RDW 13.3 % (11.9-15.9) 09/22/19 11:30 Plt Count 244 K/MM3 (134-434) D 09/22/19 11:30 MPV 9.8 fl (7.5-11.1) 09/22/19 11:30 Sodium 142 mmol/L (136-145) 09/22/19 11:30 Potassium 4.2 mmol/L (3.5-5.1) 09/22/19 11:30 Chloride 106 mmol/L (98-107) 09/22/19 11:30 Carbon Dioxide 26 mmol/L (21-32) 09/22/19 11:30 Anion Gap 10 MMOL/L (8-16) 09/22/19 11:30 BUN 19.8 mg/dL (7-18) H 09/22/19 11:30 Creatinine 1.3 mg/dL (0.55-1.3) 09/22/19 11:30 Est GFR (CKD-EPI)AfAm 70.69 09/22/19 11:30 Est GFR (CKD-EPI)NonAf 60.99 09/22/19 11:30 Random Glucose 126 mg/dL (74-106) H 09/22/19 11:30 Calcium 9.6 mg/dL (8.5-10.1) 09/22/19 11:30 Total Bilirubin 1.4 mg/dL (0.2-1) H 09/22/19 11:30 AST 59 U/L (15-37) H 09/22/19 11:30 ALT 37 U/L (13-61) 09/22/19 11:30 Alkaline Phosphatase 57 U/L (45-117) 09/22/19 11:30 Total Protein 7.5 g/dl (6.4-8.2) 09/22/19 11:30 Albumin 4.0 g/dl (3.4-5.0) 09/22/19 11:30 RPR Titer Nonreactive (NONREACTIVE) 09/22/19 11:30 lab noted Assessment: 09/23/19 14:54 alcohol withdrawal Plan: librium regiment
[2019-09-23] MEDS: THIAMINE HCL 100 MG TABLET (FP) PO SCH (23:00)
[2019-09-24] MEDS: chlordiazePOXIDE HCL 25 MG CAPSULE PO SCH ×4 (06:39→22:46)
[2019-09-24] MEDS: NICOTINE 7 MG/24 HOURS TOPICAL PATCH TD SCH (10:06)
[2019-09-24] MEDS: PRENATAL VITAMINS W/ FOLIC ACID TABLET (FP) PO SCH (10:06)
[2019-09-24] MEDS: guaiFENesin 200 MG/10 ML 10 ML UNIT-DOSE CUPS PO PRN ×2 (10:07→17:25)
[2019-09-24] MEDS: MENTHOL/PHENOL 1 EACH UD MM PRN ×2 (10:07→17:23)
--- NOTE | 2019-09-24 11:38 | PN ---
S CIWA - CIWA Score Nausea/Vomitin-No Nausea/No Vomiting Muscle Tremors: 1-None Visible, but [place] Anxiety: 2 Agitation: 1-Slight > Activity Paroxysmal Sweats: No Perspiration Orientation: 0-Oriented Tacttile Disturbances: 0-None Auditory Disturbances: 0-None Visual Disturbances: 0-None Headache: 0-None Present CIWA-Ar Total Score: 4 BHS Progress Note (SOAP) Subjective: Mr. Kinney complains of anxiety, otherwise feeling well Objective: 09/24/19 11:35 Laboratory Last Values WBC 7.1 K/mm3 (4.0-10.0) 09/22/19 11:30 RBC 4.52 M/mm3 (4.00-5.60) 09/22/19 11:30 Hgb 14.0 GM/dL (11.7-16.9) 09/22/19 11:30 Hct 42.1 % (35.4-49) 09/22/19 11:30 MCV 93.1 fl (80-96) 09/22/19 11:30 MCH 30.9 pg (25.7-33.7) 09/22/19 11:30 MCHC 33.2 g/dl (32.0-35.9) 09/22/19 11:30 RDW 13.3 % (11.9-15.9) 09/22/19 11:30 Plt Count 244 K/MM3 (134-434) D 09/22/19 11:30 MPV 9.8 fl (7.5-11.1) 09/22/19 11:30 Sodium 142 mmol/L (136-145) 09/22/19 11:30 Potassium 4.2 mmol/L (3.5-5.1) 09/22/19 11:30 Chloride 106 mmol/L (98-107) 09/22/19 11:30 Carbon Dioxide 26 mmol/L (21-32) 09/22/19 11:30 Anion Gap 10 MMOL/L (8-16) 09/22/19 11:30 BUN 19.8 mg/dL (7-18) H 09/22/19 11:30 Creatinine 1.3 mg/dL (0.55-1.3) 09/22/19 11:30 Est GFR (CKD-EPI)AfAm 70.69 09/22/19 11:30 Est GFR (CKD-EPI)NonAf 60.99 09/22/19 11:30 Random Glucose 126 mg/dL (74-106) H 09/22/19 11:30 Calcium 9.6 mg/dL (8.5-10.1) 09/22/19 11:30 Total Bilirubin 1.4 mg/dL (0.2-1) H 09/22/19 11:30 AST 59 U/L (15-37) H 09/22/19 11:30 ALT 37 U/L (13-61) 09/22/19 11:30 Alkaline Phosphatase 57 U/L (45-117) 09/22/19 11:30 Total Protein 7.5 g/dl (6.4-8.2) 09/22/19 11:30 Albumin 4.0 g/dl (3.4-5.0) 09/22/19 11:30 RPR Titer Nonreactive (NONREACTIVE) 09/22/19 11:30 Vital Signs Temperature 97.7 F 09/24/19 08:55 Pulse Rate 97 H 09/24/19 08:55 Respiratory Rate 18 09/24/19 08:55 Blood Pressure 115/63 09/24/19 08:55 O2 Sat by Pulse Oximetry (%) Gnl: WDWN, obese, in no distress MS: awake, alert, nl language function Motor: moves 4 limbs symmetrically Assessment: 09/24/19 11:36 1. Alcohol use disorder, here for detox 2. Hx of crack cocaine use 3. Hx of nicotine use disorder 4. Hx of cannabis use disorder Plan: 1. Continue alcohol withdrawal protocol 2. Nicotine patch
[2019-09-24] MEDS: THIAMINE HCL 100 MG TABLET (FP) PO SCH (22:46)
[2019-09-25] MEDS ORDERED: chlordiazePOXIDE HCL 10 MG CAPSULE PO PRN
[2019-09-25] MEDS: chlordiazePOXIDE HCL 10 MG CAPSULE PO SCH ×4 (05:46→23:03)
[2019-09-25] MEDS: MENTHOL/PHENOL 1 EACH UD MM PRN ×3 (05:47→17:32)
[2019-09-25] MEDS: NICOTINE 7 MG/24 HOURS TOPICAL PATCH TD SCH (10:09)
[2019-09-25] MEDS: PRENATAL VITAMINS W/ FOLIC ACID TABLET (FP) PO SCH (10:11)
[2019-09-25] MEDS: guaiFENesin 200 MG/10 ML 10 ML UNIT-DOSE CUPS PO PRN (10:12)
--- NOTE | 2019-09-25 10:59 | PN ---
S CIWA - CIWA Score Nausea/Vomitin-No Nausea/No Vomiting Muscle Tremors: None Anxiety: 3 Agitation: 0-Normal Activity Paroxysmal Sweats: 3 Orientation: 0-Oriented Tacttile Disturbances: 0-None Auditory Disturbances: 0-None Visual Disturbances: 0-None Headache: 2-Mild CIWA-Ar Total Score: 8 BHS Progress Note (SOAP) Subjective: c/o headache, anxiety, and sweats. Objective: 09/25/19 10:59 Vital Signs 09/25/19 09/25/19 09/25/19 03:30 06:36 09:19 Temperature 97.2 F L 97.3 F L Pulse Rate 68 90 Respiratory 18 18 18 Rate Blood Pressure 121/60 111/67 Laboratory Last Values WBC 7.1 K/mm3 (4.0-10.0) 09/22/19 11:30 RBC 4.52 M/mm3 (4.00-5.60) 09/22/19 11:30 Hgb 14.0 GM/dL (11.7-16.9) 09/22/19 11:30 Hct 42.1 % (35.4-49) 09/22/19 11:30 MCV 93.1 fl (80-96) 09/22/19 11:30 MCH 30.9 pg (25.7-33.7) 09/22/19 11:30 MCHC 33.2 g/dl (32.0-35.9) 09/22/19 11:30 RDW 13.3 % (11.9-15.9) 09/22/19 11:30 Plt Count 244 K/MM3 (134-434) D 09/22/19 11:30 MPV 9.8 fl (7.5-11.1) 09/22/19 11:30 Sodium 142 mmol/L (136-145) 09/22/19 11:30 Potassium 4.2 mmol/L (3.5-5.1) 09/22/19 11:30 Chloride 106 mmol/L (98-107) 09/22/19 11:30 Carbon Dioxide 26 mmol/L (21-32) 09/22/19 11:30 Anion Gap 10 MMOL/L (8-16) 09/22/19 11:30 BUN 19.8 mg/dL (7-18) H 09/22/19 11:30 Creatinine 1.3 mg/dL (0.55-1.3) 09/22/19 11:30 Est GFR (CKD-EPI)AfAm 70.69 09/22/19 11:30 Est GFR (CKD-EPI)NonAf 60.99 09/22/19 11:30 Random Glucose 126 mg/dL (74-106) H 09/22/19 11:30 Calcium 9.6 mg/dL (8.5-10.1) 09/22/19 11:30 Total Bilirubin 1.4 mg/dL (0.2-1) H 09/22/19 11:30 AST 59 U/L (15-37) H 09/22/19 11:30 ALT 37 U/L (13-61) 09/22/19 11:30 Alkaline Phosphatase 57 U/L (45-117) 09/22/19 11:30 Total Protein 7.5 g/dl (6.4-8.2) 09/22/19 11:30 Albumin 4.0 g/dl (3.4-5.0) 09/22/19 11:30 RPR Titer Nonreactive (NONREACTIVE) 09/22/19 11:30 Labs noted. Assessment: 09/25/19 11:00 AOX3, in no acute respiratory distress. Full ROM, ambulating in the unit. Withdrawal symptoms. Plan: Continue detox.
[2019-09-25] MEDS: THIAMINE HCL 100 MG TABLET (FP) PO SCH ×2 (23:03→23:05)
[2019-09-26] MEDS: MENTHOL/PHENOL 1 EACH UD MM PRN ×2 (06:14→22:25)
[2019-09-26] MEDS: chlordiazePOXIDE HCL 10 MG CAPSULE PO SCH ×2 (06:14→17:59)
[2019-09-26] MEDS: NICOTINE 7 MG/24 HOURS TOPICAL PATCH TD SCH (10:06)
[2019-09-26] MEDS: PRENATAL VITAMINS W/ FOLIC ACID TABLET (FP) PO SCH (10:08)
--- NOTE | 2019-09-26 12:32 | PN ---
[facility] CIWA - CIWA Score Nausea/Vomitin-No Nausea/No Vomiting Muscle Tremors: 1-None Visible, but [place] Anxiety: 1-Mildly Anxious Agitation: 1-Slight > Activity Paroxysmal Sweats: 1-Minimal Palms Moist Orientation: 0-Oriented Tacttile Disturbances: 0-None Auditory Disturbances: 0-None Visual Disturbances: 0-None Headache: 0-None Present CIWA-Ar Total Score: 4 BHS Progress Note (SOAP) Subjective: 54 years old male admitted on 09/22/19 for alcohol withdrawal sx management treating with librium detox regiment feeling better today less tremor mild anxiety slept through the night Objective: 09/26/19 12:31 Vital Signs Temperature 98.3 F 09/26/19 09:15 Pulse Rate 86 09/26/19 09:15 Respiratory Rate 17 09/26/19 09:15 Blood Pressure 114/69 09/26/19 09:15 O2 Sat by Pulse Oximetry (%) Laboratory Last Values WBC 7.1 K/mm3 (4.0-10.0) 09/22/19 11:30 RBC 4.52 M/mm3 (4.00-5.60) 09/22/19 11:30 Hgb 14.0 GM/dL (11.7-16.9) 09/22/19 11:30 Hct 42.1 % (35.4-49) 09/22/19 11:30 MCV 93.1 fl (80-96) 09/22/19 11:30 MCH 30.9 pg (25.7-33.7) 09/22/19 11:30 MCHC 33.2 g/dl (32.0-35.9) 09/22/19 11:30 RDW 13.3 % (11.9-15.9) 09/22/19 11:30 Plt Count 244 K/MM3 (134-434) D 09/22/19 11:30 MPV 9.8 fl (7.5-11.1) 09/22/19 11:30 Sodium 142 mmol/L (136-145) 09/22/19 11:30 Potassium 4.2 mmol/L (3.5-5.1) 09/22/19 11:30 Chloride 106 mmol/L (98-107) 09/22/19 11:30 Carbon Dioxide 26 mmol/L (21-32) 09/22/19 11:30 Anion Gap 10 MMOL/L (8-16) 09/22/19 11:30 BUN 19.8 mg/dL (7-18) H 09/22/19 11:30 Creatinine 1.3 mg/dL (0.55-1.3) 09/22/19 11:30 Est GFR (CKD-EPI)AfAm 70.69 09/22/19 11:30 Est GFR (CKD-EPI)NonAf 60.99 09/22/19 11:30 Random Glucose 126 mg/dL (74-106) H 09/22/19 11:30 Calcium 9.6 mg/dL (8.5-10.1) 09/22/19 11:30 Total Bilirubin 1.4 mg/dL (0.2-1) H 09/22/19 11:30 AST 59 U/L (15-37) H 09/22/19 11:30 ALT 37 U/L (13-61) 09/22/19 11:30 Alkaline Phosphatase 57 U/L (45-117) 09/22/19 11:30 Total Protein 7.5 g/dl (6.4-8.2) 09/22/19 11:30 Albumin 4.0 g/dl (3.4-5.0) 09/22/19 11:30 RPR Titer Nonreactive (NONREACTIVE) 09/22/19 11:30 lab noted Assessment: 09/26/19 12:33 alcohol withdrawal Plan: librium regiment
[2019-09-26] MEDS: THIAMINE HCL 100 MG TABLET (FP) PO SCH (22:24)
[2019-09-27] MEDS ORDERED: chlordiazePOXIDE HCL 10 MG CAPSULE PO ONE (05:00)
[2019-09-27] MEDS: MENTHOL/PHENOL 1 EACH UD MM PRN ×2 (05:54→10:06)
--- NOTE | 2019-09-27 09:55 | DS ---
[facility] Detox Discharge Summary Admission Date: 09/22/19 Discharge Date: 09/27/19 - History Present History: Alcohol Dependence Additional Comments: 54 years old male admitted on 09/22/19 for alcohol withdrawal sx management treated with librium detox regiment patient has completed the librium regiment and tolerated well alert oriented x 3 respiratory clear lungs bilaterally on auscultation extremities full range of motion skin warm and dry - Physical Exam Results Vital Signs: Vital Signs Temperature 97.3 F L 09/27/19 09:05 Pulse Rate 96 H 09/27/19 09:05 Respiratory Rate 09/27/19 09:05 Blood Pressure 110/79 09/27/19 09:05 O2 Sat by Pulse Oximetry (%) Pertinent Admission Physical Exam Findings: alcohol withdrawal Vital Signs Temperature 97.3 F L 09/27/19 09:05 Pulse Rate 96 H 09/27/19 09:05 Respiratory Rate 09/27/19 09:05 Blood Pressure 110/79 09/27/19 09:05 O2 Sat by Pulse Oximetry (%) Laboratory Last Values WBC 7.1 K/mm3 (4.0-10.0) 09/22/19 11:30 RBC 4.52 M/mm3 (4.00-5.60) 09/22/19 11:30 Hgb 14.0 GM/dL (11.7-16.9) 09/22/19 11:30 Hct 42.1 % (35.4-49) 09/22/19 11:30 MCV 93.1 fl (80-96) 09/22/19 11:30 MCH 30.9 pg (25.7-33.7) 09/22/19 11:30 MCHC 33.2 g/dl (32.0-35.9) 09/22/19 11:30 RDW 13.3 % (11.9-15.9) 09/22/19 11:30 Plt Count 244 K/MM3 (134-434) D 09/22/19 11:30 MPV 9.8 fl (7.5-11.1) 09/22/19 11:30 Sodium 142 mmol/L (136-145) 09/22/19 11:30 Potassium 4.2 mmol/L (3.5-5.1) 09/22/19 11:30 Chloride 106 mmol/L (98-107) 09/22/19 11:30 Carbon Dioxide 26 mmol/L (21-32) 09/22/19 11:30 Anion Gap 10 MMOL/L (8-16) 09/22/19 11:30 BUN 19.8 mg/dL (7-18) H 09/22/19 11:30 Creatinine 1.3 mg/dL (0.55-1.3) 09/22/19 11:30 Est GFR (CKD-EPI)AfAm 70.69 09/22/19 11:30 Est GFR (CKD-EPI)NonAf 60.99 09/22/19 11:30 Random Glucose 126 mg/dL (74-106) H 09/22/19 11:30 Calcium 9.6 mg/dL (8.5-10.1) 09/22/19 11:30 Total Bilirubin 1.4 mg/dL (0.2-1) H 09/22/19 11:30 AST 59 U/L (15-37) H 09/22/19 11:30 ALT 37 U/L (13-61) 09/22/19 11:30 Alkaline Phosphatase 57 U/L (45-117) 09/22/19 11:30 Total Protein 7.5 g/dl (6.4-8.2) 09/22/19 11:30 Albumin 4.0 g/dl (3.4-5.0) 09/22/19 11:30 RPR Titer Nonreactive (NONREACTIVE) 09/22/19 11:30 lab noted - Treatment Hospital Course: Detox Protocol Followed, Detoxed Safely, Responded well, Discharged Condition Good, Rehab Referral Accepted Patient has Accepted [facility] - Medication Discharge Medications: Ambulatory Orders NK [No Known Home Medication] 12/09/17 - Diagnosis (1) Alcohol dependence with withdrawal Current Visit: Yes Status: Acute Qualifiers: Complication of substance-induced condition: uncomplicated Qualified Code(s ): F10.230 - Alcohol dependence with withdrawal, uncomplicated (2) Asthma Current Visit: Yes Status: Chronic Qualifiers: Asthma severity: mild Asthma persistence: intermittent Asthma complication type: with status asthmaticus Qualified Code(s): J45.22 - Mild intermittent asthma with status asthmaticus (3) Nicotine dependence Current Visit: Yes Status: Acute Qualifiers: Nicotine product type: cigarettes Substance use status: in withdrawal Qualified Code(s): F17.213 - Nicotine dependence, cigarettes, with withdrawal (4) Substance induced mood disorder Current Visit: Yes Status: Suspected - AMA Did Patient Leave Against Medical Advice: No CIWA Score - CIWA Score Nausea/Vomitin-No Nausea/No Vomiting Muscle Tremors: 1-None Visible, but [place] Anxiety: 1-Mildly Anxious Agitation: 0-Normal Activity Paroxysmal Sweats: No Perspiration Orientation: 0-Oriented Tacttile Disturbances: 0-None Auditory Disturbances: 0-None Visual Disturbances: 0-None Headache: 0-None Present CIWA-Ar Total Score: 2
[2019-09-27] MEDS: PRENATAL VITAMINS W/ FOLIC ACID TABLET (FP) PO SCH (10:05)
[2019-09-27] MEDS: NICOTINE 7 MG/24 HOURS TOPICAL PATCH TD SCH (10:05)
[2019-09-27 13:23] VITALS: BP 114/77; PULSE 80; TEMP 96.6
== END 2019-09-27 14:07 | disposition other institution (70) | DRG 774 ==
LOC: YASAS 10:22 → Y3N 11:56
PROVIDERS: ADMIT Allergy & Immunology; ATTEND Allergy & Immunology
PROC: HZ2ZZZZ Detoxification Services for Substance Abuse Treatment (ICD-10-PCS; principal; 2019-09-22)
DX: F10.230 Alcohol dependence with withdrawal, uncomplicated (principal); F14.20 Cocaine dependence, uncomplicated; F17.213 Nicotine dependence, cigarettes, with withdrawal; F31.9 Bipolar disorder, unspecified; F19.24 Other psychoactive substance dependence with psychoactive substance-induced mood disorder; I10 Essential (primary) hypertension; E78.00 Pure hypercholesterolemia, unspecified; J45.909 Unspecified asthma, uncomplicated; K59.00 Constipation, unspecified; E66.9 Obesity, unspecified; Z68.32 Body mass index [BMI] 32.0-32.9, adult; Z87.828 Personal history of other (healed) physical injury and trauma; Z91.19 Patient's noncompliance with other medical treatment and regimen
CPT/HCPCS: 36415; 80053; 85027; 86593

== ENCOUNTER 2019-09-27 14:42 | Inpatient (IN) | payer OTHER ==
--- NOTE | 2019-09-27 10:49 | HP ---
[facility] Rehab Assess/Revision - Admission History Admitted to Rehab from: [facility] Date of Admission to Rehab: 09/27/19 - Findings Detox History & Physical reviewed: Yes Concur with findings: Yes Comments/Additional Findings: tranferred from detox to rehab admission as per protocol Inpatient Rehab Admission - Rehab Decision to Admit Inpatient rehab admission?: Yes - Initial Determination Are CD services needed?: Yes Free of communicable disease: Yes Not in need of hospitalization: Yes - Rehab Admission Criteria Previous failed treatment: Yes Poor recovery environment: Yes Comorbidities: Yes Lacks judgement: Yes Patient is meeting Inpatient Rehab admission criteria:: Yes
[~2019-09-27 14:42] MED LIST changes: -MENTHOL/PHENOL 1 EACH UD MM PRN; -NICOTINE 14 MG/24 HOURS TOPICAL PATCH TD PRN; -NICOTINE POLACRILEX 2 MG GUM BC PRN; +NICOTINE POLACRILEX 2 MG GUM BUC PRN; +guaiFENesin 200 MG/10 ML 10 ML UNIT-DOSE CUPS PO PRN; -guaiFENesin/D-METHORPHAN HB 10 ML UNIT-DOSE CUPS PO PRN
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
[2019-09-27] MEDS ORDERED: MELATONIN 5 MG TABLETS PO PRN (22:00)
[2019-09-27] MEDS: THIAMINE HCL 100 MG TABLET (FP) PO SCH (22:17)
[2019-09-28] MEDS: NICOTINE 7 MG/24 HOURS TOPICAL PATCH TD SCH (11:17)
[2019-09-28] MEDS: PRENATAL VITAMINS W/ FOLIC ACID TABLET (FP) PO SCH (11:17)
[2019-09-28] MEDS: MENTHOL/PHENOL 1 EACH UD MM PRN (11:18)
[2019-09-28] MEDS: THIAMINE HCL 100 MG TABLET (FP) PO SCH (21:54)
[2019-09-29] MEDS: PRENATAL VITAMINS W/ FOLIC ACID TABLET (FP) PO SCH (10:43)
[2019-09-29] MEDS: NICOTINE 7 MG/24 HOURS TOPICAL PATCH TD SCH (10:43)
[2019-09-29] MEDS: MENTHOL/PHENOL 1 EACH UD MM PRN ×2 (10:44→21:31)
[2019-09-29] MEDS: THIAMINE HCL 100 MG TABLET (FP) PO SCH (21:30)
[2019-09-30] MEDS: NICOTINE 7 MG/24 HOURS TOPICAL PATCH TD SCH (10:05)
[2019-09-30] MEDS: PRENATAL VITAMINS W/ FOLIC ACID TABLET (FP) PO SCH (10:06)
[2019-09-30] MEDS: MENTHOL/PHENOL 1 EACH UD MM PRN (10:07)
--- NOTE | 2019-09-30 11:53 | PN ---
[facility] Progress Note Note: Pt is a 54 y/o male with a hx of KAROL-alcohol,crack/cocaine admitted to rehab after detoxing on on 09/27/19. PMHx:Asthma("when I was 3 yrs old-I grew out of it"), HTN(no med and "never"). Psych Hx:Bipolar d/o. Pt reports he has a primary care provider Dr. Jerrell Rowe with [facility] around the [place], [place]. Vital Signs - 24 hr 09/30/19 09/30/19 09/30/19 00:30 03:30 07:16 Temperature 98.2 F Pulse Rate 71 Respiratory 18 18 18 Rate Blood Pressure 135/79 Alert o x3, denies s/h/i nad oob ambulating with steady gait extremities/skin:no edema, mild varicose veins, LE > RE;skin intact A/P KAROL new rehab pt Maintain safety
[2019-09-30] MEDS: THIAMINE HCL 100 MG TABLET (FP) PO SCH (21:52)
[2019-10-01] MEDS: PRENATAL VITAMINS W/ FOLIC ACID TABLET (FP) PO SCH (10:40)
[2019-10-01] MEDS: MENTHOL/PHENOL 1 EACH UD MM PRN ×2 (10:40→21:24)
[2019-10-01] MEDS: NICOTINE 7 MG/24 HOURS TOPICAL PATCH TD SCH (10:40)
[2019-10-01 12:16] LABS: ALBUMIN 3.9 g/dl (3.4-5.0); BILIRUBIN,TOTAL 1.2 mg/dL (0.2-1); BLOOD UREA NITROGEN 21.2 mg/dL (7-18); CALCIUM 9.2 mg/dL (8.5-10.1); CREATININE 1.2 mg/dL (0.55-1.3); TOT PROT 7.3 g/dl (6.4-8.2)
--- NOTE | 2019-10-01 14:23 | PN ---
S Progress Note Note: lab review: Laboratory Tests 10/01/19 08:35 Sodium 139 Potassium 4.0 Chloride 105 Carbon Dioxide 26 Anion Gap 7 L BUN 21.2 H Creatinine 1.2 Est GFR (CKD-EPI)AfAm 77.88 Est GFR (CKD-EPI)NonAf 67.19 Random Glucose 141 H Calcium 9.2 Total Bilirubin 1.2 H AST 33 ALT 61 Alkaline Phosphatase 57 Total Protein 7.3 Albumin 3.9 results noted. FBS x 2 days as directed. R/o Hyperglycemia.
[2019-10-01] MEDS: THIAMINE HCL 100 MG TABLET (FP) PO SCH (21:25)
[2019-10-02] MEDS: NICOTINE 7 MG/24 HOURS TOPICAL PATCH TD SCH (10:22)
[2019-10-02] MEDS: PRENATAL VITAMINS W/ FOLIC ACID TABLET (FP) PO SCH (10:23)
[2019-10-02] MEDS: MENTHOL/PHENOL 1 EACH UD MM PRN ×2 (10:23→21:38)
[2019-10-02] MEDS: THIAMINE HCL 100 MG TABLET (FP) PO SCH (21:37)
[2019-10-03] MEDS: NICOTINE 7 MG/24 HOURS TOPICAL PATCH TD SCH (10:07)
[2019-10-03] MEDS: PRENATAL VITAMINS W/ FOLIC ACID TABLET (FP) PO SCH (10:08)
[2019-10-03] MEDS: MENTHOL/PHENOL 1 EACH UD MM PRN ×2 (10:08→21:29)
[2019-10-03] MEDS: THIAMINE HCL 100 MG TABLET (FP) PO SCH (21:29)
[2019-10-04] MEDS: NICOTINE 7 MG/24 HOURS TOPICAL PATCH TD SCH (10:33)
[2019-10-04] MEDS: PRENATAL VITAMINS W/ FOLIC ACID TABLET (FP) PO SCH (10:33)
[2019-10-04] MEDS: MENTHOL/PHENOL 1 EACH UD MM PRN ×2 (10:34→21:29)
[2019-10-04] MEDS: THIAMINE HCL 100 MG TABLET (FP) PO SCH (21:29)
[2019-10-05] MEDS: NICOTINE 7 MG/24 HOURS TOPICAL PATCH TD SCH (10:32)
[2019-10-05] MEDS: MENTHOL/PHENOL 1 EACH UD MM PRN ×2 (10:32→21:24)
[2019-10-05] MEDS: PRENATAL VITAMINS W/ FOLIC ACID TABLET (FP) PO SCH (10:32)
[2019-10-05] MEDS: THIAMINE HCL 100 MG TABLET (FP) PO SCH (21:24)
[2019-10-06] MEDS: NICOTINE 7 MG/24 HOURS TOPICAL PATCH TD SCH (10:30)
[2019-10-06] MEDS: MENTHOL/PHENOL 1 EACH UD MM PRN ×2 (10:30→21:36)
[2019-10-06] MEDS: PRENATAL VITAMINS W/ FOLIC ACID TABLET (FP) PO SCH (10:30)
[2019-10-06 12:16] LABS: ALBUMIN 3.9 g/dl (3.4-5.0); BILIRUBIN,TOTAL 1.5 mg/dL (0.2-1); BLOOD UREA NITROGEN 20.8 mg/dL (7-18); CALCIUM 9.2 mg/dL (8.5-10.1); CREATININE 1.1 mg/dL (0.55-1.3); TOT PROT 7.3 g/dl (6.4-8.2)
[2019-10-06] MEDS: THIAMINE HCL 100 MG TABLET (FP) PO SCH (21:37)
[2019-10-07 07:16] VITALS: PULSE 65
[2019-10-07] MEDS: MENTHOL/PHENOL 1 EACH UD MM PRN ×2 (10:13→21:41)
[2019-10-07] MEDS: NICOTINE 7 MG/24 HOURS TOPICAL PATCH TD SCH (10:13)
[2019-10-07] MEDS: PRENATAL VITAMINS W/ FOLIC ACID TABLET (FP) PO SCH (10:13)
--- NOTE | 2019-10-07 11:14 | DS ---
[facility] Rehab Discharge Summary - [facility] Rehab Discharge Summary Admission Date: 09/27/19 Discharge Date: 10/08/19 - History Present History: Alcohol dependence, Cocaine dependence Additional Comments: Pt is a 54 y/o male with a hx of KAROL admitted to rehab and scheduled for discharge on 10/08/19 after completion of treatment. Pt met with his counselor and has been referred to CD aftercare for follow up after discharge. Pt reports he has a primary care provider Dr. Jerrell Roew who he will be following up with after discharge. Pertinent Past History: Childhood Asthma(per pt's verbal report no current treatment) Constipation Obesity Bipolar Disorder - Discharge Physical Exam Vital Signs: Vital Signs Temperature 98.1 F 10/07/19 07:19 Pulse Rate 65 10/07/19 07:19 Respiratory Rate 18 10/07/19 07:19 Blood Pressure 119/62 10/07/19 07:19 O2 Sat by Pulse Oximetry (%) Alert o x 3,deies s/h/i nad oob ambulating with steady gait cardiac:s1 s2,rrr lungs:cta,francoise. abdomen:+soft,nt,++fatty extremities/skin:no edema;skin intact. Pertinent Admission Physical Exam Findings: Laboratory Tests 10/01/19 10/06/19 08:35 08:40 Sodium 139 139 Potassium 4.0 4.0 Chloride 105 105 Carbon Dioxide 26 27 Anion Gap 7 L 7 L BUN 21.2 H 20.8 H Creatinine 1.2 1.1 Est GFR (CKD-EPI)AfAm 77.88 86.52 Est GFR (CKD-EPI)NonAf 67.19 74.65 Random Glucose 141 H 95 Calcium 9.2 9.2 Total Bilirubin 1.2 H 1.5 H AST 33 32 ALT 61 56 Alkaline Phosphatase 57 52 Total Protein 7.3 7.3 Albumin 3.9 3.9 - Treatment Discharge Condition: Discharge condition good Hospital Course: Rehabilitated well and responded well CD aftercare referral accepted to [facility] OPD pt participated in groups and individual sessions while in treatment. - Medication Discharge Medications: Ambulatory Orders NK [No Known Home Medication] 12/09/17 - Medication-Assisted Treatment (MAT) Medication-Assisted Treatment (MAT): No - Discharge Instructions Diet, activity, other medical instructions: Diet:Regular Activity: oob ad rosalee Other medical instructions:folow up with CD aftercare recommendation as scheduled. follow up with primary care within 1-2 weeks after discharge. Provider/Clinic Location: [place] [address] - Diagnosis (1) Alcohol dependence Status: Chronic Qualifiers: Substance use status: uncomplicated Qualified Code(s): F10.20 - Alcohol dependence, uncomplicated (2) Cocaine dependence Status: Chronic Qualifiers: Substance use status: uncomplicated Qualified Code(s): F14.20 - Cocaine dependence, uncomplicated (3) Nicotine dependence Status: Chronic Qualifiers: Nicotine product type: cigarettes Substance use status: uncomplicated Qualified Code(s): F17.210 - Nicotine dependence, cigarettes, uncomplicated (4) No natural teeth Status: Chronic (5) Serum total bilirubin elevated Status: Acute (6) Asthma Status: Chronic Qualifiers: Asthma severity: mild Asthma persistence: unspecified Asthma complication type: unspecified Qualified Code(s): J45.909 - Unspecified asthma , uncomplicated (7) Constipation Status: Chronic Qualifiers: Constipation type: unspecified constipation type Qualified Code(s): K59.00 - Constipation, unspecified (8) Obese Status: Chronic Qualifiers: Obesity type: unspecified obesity type Obesity classification: adult class 1 (BMI 30 - 34.9) Serious obesity comorbidity presence: unspecified whether serious comorbidity present Body mass index: BMI 32.0-32.9 Qualified Code(s) : E66.9 - Obesity, unspecified; Z68.32 - Body mass index (BMI) 32.0-32.9, adult - Follow-up Referral Minutes to complete discharge: 25 - AMA Did Patient Leave Against Medical Advice: No
[2019-10-07] MEDS: THIAMINE HCL 100 MG TABLET (FP) PO SCH (21:41)
[2019-10-08 07:24] VITALS: BP 113/62; TEMP 98
[2019-10-08] MEDS: PRENATAL VITAMINS W/ FOLIC ACID TABLET (FP) PO SCH (09:24)
[2019-10-08] MEDS: NICOTINE 7 MG/24 HOURS TOPICAL PATCH TD SCH (09:24)
[2019-10-08] MEDS: MENTHOL/PHENOL 1 EACH UD MM PRN (09:25)
== END 2019-10-08 10:10 | disposition home or self-care (01) | DRG 772 ==
LOC: YASAS 14:42 → Y5N 14:43
PROVIDERS: ADMIT Allergy & Immunology; ATTEND Allergy & Immunology
PROC: HZ42ZZZ Group Counseling for Substance Abuse Treatment, Cognitive-Behavioral (ICD-10-PCS; principal; 2019-09-27)
DX: F10.20 Alcohol dependence, uncomplicated (principal); F14.20 Cocaine dependence, uncomplicated; F17.210 Nicotine dependence, cigarettes, uncomplicated; F31.9 Bipolar disorder, unspecified; I10 Essential (primary) hypertension; E78.00 Pure hypercholesterolemia, unspecified; E80.6 Other disorders of bilirubin metabolism; K59.00 Constipation, unspecified; J45.909 Unspecified asthma, uncomplicated; K00.0 Anodontia; E66.9 Obesity, unspecified; Z68.32 Body mass index [BMI] 32.0-32.9, adult; Z87.828 Personal history of other (healed) physical injury and trauma; Z91.19 Patient's noncompliance with other medical treatment and regimen
CPT/HCPCS: 36415; 80053

== ENCOUNTER 2020-02-19 08:15 | Inpatient (IN) | payer OTHER ==
--- NOTE | 2020-02-19 09:37 | BHS.RME ---
Substance Use & Tx History - Substance Use History Alcohol Substance amount: 6 pints liqour, 4 cans of 16 oz beer Frequency of use: Daily Substance route: Oral Date of Last Use: 02/18/20 Cocaine-Crack Substance amount: $250 Frequency of use: Daily Substance route: Smoking Date of Last Use: 02/18/20 - Last Treatment Date of last treatment: 09/27/19 Where was last treatment: Rehab Physical/Psych/Mental Status - Behavior General Behavior: Increased activity (restlessness, agitation) Eye Contact: Normal Other Behaviors: Mannerisms - Cooperativeness Cooperativeness: Cooperative - Thinking Thought Processes: Logical, Goal Directed Thought content: Future oriented - Physical Health Problems Is patient presently having any pain?: Yes (stomach) Does patient presently have any injuries (include location): No Does patient currently have a fever: No CIWA Nausea/Vomitin-Mild Nausea/No Vomiting Muscle Tremors: 2 Anxiety: 2 Agitation: 2 Paroxysmal Sweats: 1-Minimal Palms Moist Orientation: 0-Oriented Tacttile Disturbances: 1-Very Mild Itch/Numbness Auditory Disturbances: 1-Very Mild Visual Disturbances: 1-Very Mild Sensitivity Headache: 2-Mild CIWA-Ar Total Score: 13
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
[2020-02-19] MEDS ORDERED: MAG HYDROX/AL HYDROX/SIMETH 30 ML UNIT-DOSE CUP PO PRN (09:52)
[2020-02-19] MEDS ORDERED: IBUPROFEN 400 MG TABLET (FP) PO PRN (09:52)
[2020-02-19] MEDS ORDERED: NICOTINE POLACRILEX 2 MG GUM BUC PRN (09:52)
[2020-02-19] MEDS ORDERED: MAGNESIUM HYDROX 2400MG/30ML ORAL SUSPENSION 30 ML CUP PO PRN (09:52)
[2020-02-19] MEDS ORDERED: METHOCARBAMOL 500 MG TABLET PO PRN (09:52)
[2020-02-19] MEDS ORDERED: MAGNESIUM CITRATE 300 ML BOTTLE PO PRN (09:52)
[2020-02-19] MEDS ORDERED: ACETAMINOPHEN 325 MG TABLET (FP) PO PRN ×2 (09:52)
[2020-02-19] MEDS ORDERED: BISMUTH SUBSALICYLATE 524 MG/30 ML UD PO PRN (09:52)
[2020-02-19] MEDS ORDERED: ONDANSETRON *ODT* 4 MG TABLET SL ONE (09:52)
[2020-02-19] MEDS: PRENATAL VITAMINS W/ FOLIC ACID TABLET (FP) PO SCH (11:09)
[2020-02-19] MEDS: hydrOXYzine PAMOATE 25 MG CAPSULE (FP) PO SCH ×5 (11:09→22:07)
[2020-02-19] MEDS: chlordiazePOXIDE HCL 25 MG CAPSULE PO SCH ×2 (12:21→22:05)
[2020-02-19] MEDS: chlordiazePOXIDE HCL 10 MG CAPSULE PO PRN (17:32)
[2020-02-19] MEDS: THIAMINE HCL 100 MG TABLET (FP) PO SCH (22:05)
[2020-02-19] MEDS: MELATONIN 5 MG TABLETS PO SCH (22:07)
[2020-02-20] MEDS: MENTHOL/PHENOL 1 EACH UD MM PRN ×2 (06:00→10:09)
[2020-02-20] MEDS: chlordiazePOXIDE HCL 25 MG CAPSULE PO SCH ×3 (06:01→21:59)
[2020-02-20] MEDS: hydrOXYzine PAMOATE 25 MG CAPSULE (FP) PO SCH ×3 (06:01→13:28)
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
[2020-02-20] MEDS: PRENATAL VITAMINS W/ FOLIC ACID TABLET (FP) PO SCH (10:08)
[2020-02-20 11:43] LABS: HEMATOCRIT 44.5 % (35.4-49); HEMOGLOBIN 14.6 GM/dL (11.7-16.9); MCH 30.7 pg (25.7-33.7); MCHC 32.7 g/dl (32.0-35.9); MEAN CELL VOLUME 93.8 fl (80-96); MEAN PLT VOLUME 9.4 fl (7.5-11.1); PLATELET COUNT 213 K/MM3 (134-434); RBC 4.75 M/mm3 (4.00-5.60); RDW 13.8 % (11.9-15.9); WHITE BLOOD COUNT 6.4 K/mm3 (4.0-10.0)
[2020-02-20 11:59] LABS: ALBUMIN 4.2 g/dl (3.4-5.0); BILIRUBIN,TOTAL 2.1 mg/dL (0.2-1); CREATININE 1.2 mg/dL (0.55-1.3); POTASSIUM 4.1 mmol/L (3.5-5.1); TOT PROT 7.6 g/dl (6.4-8.2)
[2020-02-20] MEDS ORDERED: hydrOXYzine PAMOATE 25 MG CAPSULE (FP) PO PRN (13:55)
--- NOTE | 2020-02-20 16:08 | PN ---
[facility] CIWA - CIWA Score Nausea/Vomitin-Mild Nausea/No Vomiting Muscle Tremors: 2 Anxiety: 3 Agitation: 2 Paroxysmal Sweats: 3 Orientation: 0-Oriented Tacttile Disturbances: 0-None Auditory Disturbances: 0-None Visual Disturbances: 0-None Headache: 0-None Present CIWA-Ar Total Score: 11 S Progress Note (SOAP) Subjective: Tremor, poor appetite. Patient is wearing face mask. Objective: 02/20/20 16:03 Last Vital Signs Temp Pulse Resp BP Pulse Ox 97.1 F L 70 18 135/79 98 02/20/20 12:22 02/20/20 12:22 02/20/20 12:22 02/20/20 12:22 02/20/20 12:22 Elevated b/p noted, denies htn, not on med Laboratory Tests 02/20/20 02/20/20 02/20/20 07:30 07:30 07:30 WBC 6.4 RBC 4.75 Hgb 14.6 Hct 44.5 MCV 93.8 MCH 30.7 MCHC 32.7 RDW 13.8 Plt Count 213 MPV 9.4 Sodium 138 Potassium 4.1 Chloride 102 Carbon Dioxide 30 Anion Gap 6 L BUN 18.0 Creatinine 1.2 Est GFR (CKD-EPI)AfAm 77.88 Est GFR (CKD-EPI)NonAf 67.19 Random Glucose 95 Calcium 9.0 Total Bilirubin 2.1 H AST 48 H ALT 47 Alkaline Phosphatase 50 Total Protein 7.6 Albumin 4.2 Syphilis Serology Non-reactive Labs reviewed: elevated total bilirubin, elevated AST noted Assessment: 02/20/20 16:05 Withdrawal sxs Noted with elevated b/p, elevated total bilirubin and AST Plan: Continue detox Encourage PO water intake Elevated b/p: denies htn, could be withdrawal related, monitor b/p Elevated total bilirubin: most likely due to alcoholism, repeat total bilirubin Elevated AST: most likely due to alcoholism, repeat AST
[2020-02-20] MEDS: THIAMINE HCL 100 MG TABLET (FP) PO SCH (22:08)
[2020-02-20] MEDS: MELATONIN 5 MG TABLETS PO SCH (22:09)
[2020-02-21] MEDS: chlordiazePOXIDE 5 MG CAPSULE PO SCH ×3 (05:34→22:16)
[2020-02-21] MEDS: MENTHOL/PHENOL 1 EACH UD MM PRN ×3 (05:35→22:18)
[2020-02-21] MEDS: PRENATAL VITAMINS W/ FOLIC ACID TABLET (FP) PO SCH (10:06)
[2020-02-21] MEDS: chlordiazePOXIDE HCL 10 MG CAPSULE PO PRN (10:08)
--- NOTE | 2020-02-21 10:16 | PN ---
S CIWA - CIWA Score Nausea/Vomitin-No Nausea/No Vomiting Muscle Tremors: 2 Anxiety: 2 Agitation: 2 Paroxysmal Sweats: No Perspiration Orientation: 0-Oriented Tacttile Disturbances: 0-None Auditory Disturbances: 0-None Visual Disturbances: 0-None Headache: 0-None Present CIWA-Ar Total Score: 6 BHS Progress Note (SOAP) Subjective: sweats I want to see a internal audit senior manager restless anxiety Objective: 02/21/20 10:16 Vital Signs Temperature 97.2 F L 02/21/20 08:37 Pulse Rate 90 02/21/20 08:37 Respiratory Rate 02/21/20 08:37 Blood Pressure 118/73 02/21/20 08:37 O2 Sat by Pulse Oximetry (%) 96 02/21/20 06:09 Laboratory Tests 02/20/20 02/20/20 02/20/20 07:30 07:30 07:30 WBC 6.4 RBC 4.75 Hgb 14.6 Hct 44.5 MCV 93.8 MCH 30.7 MCHC 32.7 RDW 13.8 Plt Count 213 MPV 9.4 Sodium 138 Potassium 4.1 Chloride 102 Carbon Dioxide 30 Anion Gap 6 L BUN 18.0 Creatinine 1.2 Est GFR (CKD-EPI)AfAm 77.88 Est GFR (CKD-EPI)NonAf 67.19 Random Glucose 95 Calcium 9.0 Total Bilirubin 2.1 H AST 48 H ALT 47 Alkaline Phosphatase 50 Total Protein 7.6 Albumin 4.2 Syphilis Serology Non-reactive repeated labs pending aaox3 ambulating no acute distress Assessment: 02/21/20 10:16 withdrawals Plan: continue detox increase fluids internal audit senior manager ordered for nutritional evaluation as per pt request
[2020-02-21 14:16] LABS: BILIRUBIN,TOTAL 1.8 mg/dL (0.2-1)
[2020-02-21] MEDS: THIAMINE HCL 100 MG TABLET (FP) PO SCH (22:16)
[2020-02-21] MEDS: MELATONIN 5 MG TABLETS PO SCH (22:18)
[2020-02-22] MEDS ORDERED: chlordiazePOXIDE HCL 10 MG CAPSULE PO PRN
[2020-02-22] MEDS: chlordiazePOXIDE HCL 10 MG CAPSULE PO SCH ×3 (05:28→22:12)
[2020-02-22] MEDS: MENTHOL/PHENOL 1 EACH UD MM PRN ×2 (05:30→22:12)
--- NOTE | 2020-02-22 10:41 | PN ---
S CIWA - CIWA Score Nausea/Vomitin-No Nausea/No Vomiting Muscle Tremors: 2 Anxiety: 1-Mildly Anxious Agitation: 1-Slight > Activity Paroxysmal Sweats: No Perspiration Orientation: 0-Oriented Tacttile Disturbances: 0-None Auditory Disturbances: 0-None Visual Disturbances: 0-None Headache: 0-None Present CIWA-Ar Total Score: 4 BHS Progress Note (SOAP) Subjective: restless interrupted sleep Objective: 02/22/20 10:41 Vital Signs Temperature 97.7 F 02/22/20 08:37 Pulse Rate 89 02/22/20 08:37 Respiratory Rate 18 02/22/20 08:37 Blood Pressure 110/62 02/22/20 08:37 O2 Sat by Pulse Oximetry (%) 96 02/22/20 05:46 aaox3 ambulating no acute distress Assessment: 02/22/20 10:41 mild withdrawals Plan: continue detox d/c in am
[2020-02-22] MEDS: PRENATAL VITAMINS W/ FOLIC ACID TABLET (FP) PO SCH (11:13)
[2020-02-22] MEDS: THIAMINE HCL 100 MG TABLET (FP) PO SCH (22:14)
[2020-02-22] MEDS: MELATONIN 5 MG TABLETS PO SCH (22:14)
[2020-02-23] MEDS ORDERED: chlordiazePOXIDE HCL 10 MG CAPSULE PO ONE (05:00)
[2020-02-23] MEDS: MENTHOL/PHENOL 1 EACH UD MM PRN ×2 (05:38→10:14)
--- NOTE | 2020-02-23 08:46 | DS ---
[facility] Detox Discharge Summary Admission Date: 02/19/20 Discharge Date: 02/23/20 - History Present History: Alcohol Dependence, Cocaine Dependence - Physical Exam Results Vital Signs: Vital Signs Temperature 98 F 02/23/20 05:49 Pulse Rate 61 02/23/20 05:49 Respiratory Rate 18 02/23/20 05:49 Blood Pressure 108/65 02/23/20 05:49 O2 Sat by Pulse Oximetry (%) 96 02/23/20 05:49 Pertinent Admission Physical Exam Findings: Vital Signs Temperature 98 F 02/23/20 05:49 Pulse Rate 61 02/23/20 05:49 Respiratory Rate 18 02/23/20 05:49 Blood Pressure 108/65 02/23/20 05:49 O2 Sat by Pulse Oximetry (%) 96 02/23/20 05:49 Laboratory Tests 02/20/20 02/20/20 02/20/20 07:30 07:30 07:30 WBC 6.4 RBC 4.75 Hgb 14.6 Hct 44.5 MCV 93.8 MCH 30.7 MCHC 32.7 RDW 13.8 Plt Count 213 MPV 9.4 Sodium 138 Potassium 4.1 Chloride 102 Carbon Dioxide 30 Anion Gap 6 L BUN 18.0 Creatinine 1.2 Est GFR (CKD-EPI)AfAm 77.88 Est GFR (CKD-EPI)NonAf 67.19 Random Glucose 95 Calcium 9.0 Total Bilirubin 2.1 H AST 48 H ALT 47 Alkaline Phosphatase 50 Total Protein 7.6 Albumin 4.2 Syphilis Serology Non-reactive COVID-19 (NINI) 02/20/20 02/21/20 08:00 07:00 WBC RBC Hgb Hct MCV MCH MCHC RDW Plt Count MPV Sodium Potassium Chloride Carbon Dioxide Anion Gap BUN Creatinine Est GFR (CKD-EPI)AfAm Est GFR (CKD-EPI)NonAf Random Glucose Calcium Total Bilirubin 1.8 H AST 32 ALT Alkaline Phosphatase Total Protein Albumin Syphilis Serology COVID-19 (NINI) Not detected aaox3 ambulating no acute distress lungs CTA - Treatment Hospital Course: Detox Protocol Followed, Detoxed Safely, Responded well, Discharged Condition Good, Rehab Referral Accepted - Medication Discharge Medications: Ambulatory Orders NK [No Known Home Medication] 12/09/17 - Diagnosis (1) Alcohol dependence with withdrawal Current Visit: Yes Status: Chronic Qualifiers: Complication of substance-induced condition: uncomplicated Qualified Code(s): F10.230 - Alcohol dependence with withdrawal, uncomplicated (2) Cocaine dependence Current Visit: Yes Status: Chronic Qualifiers: Substance use status: uncomplicated Qualified Code(s): F14.20 - Cocaine dependence, uncomplicated (3) Mental and behavioral problems with communication (including speech) Current Visit: No Status: Acute (4) Serum total bilirubin elevated Current Visit: No Status: Acute (5) Bipolar disorder Current Visit: No Status: Chronic (6) Depression Current Visit: No Status: Chronic (7) History of bipolar disorder Current Visit: No Status: Chronic (8) Mood disorder Current Visit: No Status: Chronic (9) Nicotine dependence Current Visit: Yes Status: Chronic Qualifiers: Nicotine product type: cigarettes Substance use status: uncomplicated Qualified Code(s): F17.210 - Nicotine dependence, cigarettes, uncomplicated (10) No natural teeth Current Visit: No Status: Chronic (11) Non-compliance Current Visit: No Status: Chronic (12) Obese Current Visit: Yes Status: Chronic Qualifiers: Obesity type: unspecified obesity type Obesity classification: adult class 1 (BMI 30 - 34.9) Serious obesity comorbidity presence: unspecified whether serious comorbidity present Body mass index: BMI 32.0-32.9 Qualified Code(s): E66.9 - Obesity, unspecified; Z68.32 - Body mass index (BMI) 32.0-32.9, adult (13) Psychiatric disorder Current Visit: No Status: Suspected (14) Substance induced mood disorder Current Visit: No Status: Suspected - AMA Did Patient Leave Against Medical Advice: No
[2020-02-23 09:14] VITALS: BP 119/64; PULSE 87; TEMP 98.3
[2020-02-23] MEDS: PRENATAL VITAMINS W/ FOLIC ACID TABLET (FP) PO SCH (10:13)
== END 2020-02-23 11:28 | disposition other institution (70) | DRG 774 ==
LOC: YASAS 08:15 → Y6N 09:57
PROVIDERS: ADMIT Allergy & Immunology; ATTEND Allergy & Immunology
PROC: HZ2ZZZZ Detoxification Services for Substance Abuse Treatment (ICD-10-PCS; principal; 2020-02-19)
DX: F10.230 Alcohol dependence with withdrawal, uncomplicated (principal); F14.20 Cocaine dependence, uncomplicated; F17.210 Nicotine dependence, cigarettes, uncomplicated; F31.9 Bipolar disorder, unspecified; F19.24 Other psychoactive substance dependence with psychoactive substance-induced mood disorder; F80.9 Developmental disorder of speech and language, unspecified; F99 Mental disorder, not otherwise specified; E78.5 Hyperlipidemia, unspecified; R17 Unspecified jaundice; R03.0 Elevated blood-pressure reading, without diagnosis of hypertension; K00.0 Anodontia; Z68.32 Body mass index [BMI] 32.0-32.9, adult; Z87.09 Personal history of other diseases of the respiratory system; Z91.19 Patient's noncompliance with other medical treatment and regimen
CPT/HCPCS: 36415; 80053; 82247; 84450; 85027; 86780; U0003

== ENCOUNTER 2020-02-23 11:40 | Inpatient (IN) | payer OTHER ==
--- NOTE | 2020-02-23 10:23 | HP ---
[facility] Rehab Assess/Revision - Admission History Ad[facility] - Findings Detox History & Physical reviewed: Yes Concur with findings: Yes Inpatient Rehab Admission - Rehab Decision to Admit Inpatient rehab admission?: Yes - Initial Determination Are CD services needed?: Yes Free of communicable disease: Yes Not in need of hospitalization: Yes - Rehab Admission Criteria Previous failed treatment: Yes Poor recovery environment: Yes Comorbidities: Yes Lacks judgement: Yes Patient is meeting Inpatient Rehab admission criteria:: Yes
[2020-02-23] MEDS ORDERED: guaiFENesin 200 MG/10 ML 10 ML UNIT-DOSE CUPS PO PRN (15:05)
[2020-02-23] MEDS ORDERED: MAGNESIUM HYDROX 2400MG/30ML ORAL SUSPENSION 30 ML CUP PO PRN (15:05)
[2020-02-23] MEDS ORDERED: MAG HYDROX/AL HYDROX/SIMETH 30 ML UNIT-DOSE CUP PO PRN (15:05)
[2020-02-23] MEDS ORDERED: ACETAMINOPHEN 325 MG TABLET (FP) PO PRN (15:05)
[2020-02-23] MEDS ORDERED: LOPERAMIDE HCL 2 MG CAPSULE PO PRN (15:05)
[2020-02-23] MEDS ORDERED: MAGNESIUM CITRATE 300 ML BOTTLE PO PRN (15:05)
[2020-02-23] MEDS ORDERED: hydrOXYzine PAMOATE 25 MG CAPSULE (FP) PO PRN (15:05)
[2020-02-23] MEDS ORDERED: NICOTINE POLACRILEX 2 MG GUM BUC PRN (15:05)
[2020-02-23] MEDS ORDERED: IBUPROFEN 400 MG TABLET (FP) PO PRN (15:05)
[2020-02-23] MEDS ORDERED: P-EPHED 60MG/TRIPROLIDI 2.5MG TABLET PO PRN (15:05)
--- NOTE | 2020-02-23 15:08 | PN ---
[facility] Progress Note Note: patient admitted to [facility]. Labs, problem list, notes reviewed. Orders placed. Vital Signs Period Temp Pulse Resp BP Sys/Isidro Pulse Ox Last 24 Hr 97.8 F 90 18 121/77 96
[2020-02-23] MEDS: MELATONIN 5 MG TABLETS PO SCH (21:25)
[2020-02-23] MEDS: THIAMINE HCL 100 MG TABLET (FP) PO SCH (21:25)
[2020-02-23] MEDS: MENTHOL/PHENOL 1 EACH UD MM PRN (21:26)
[2020-02-24] MEDS: PRENATAL VITAMINS W/ FOLIC ACID TABLET (FP) PO SCH (10:36)
[2020-02-24] MEDS: NICOTINE 7 MG/24 HOURS TOPICAL PATCH TD SCH (10:37)
[2020-02-24] MEDS: MENTHOL/PHENOL 1 EACH UD MM PRN ×2 (10:37→21:48)
[2020-02-24] MEDS: THIAMINE HCL 100 MG TABLET (FP) PO SCH (21:47)
[2020-02-24] MEDS: MELATONIN 5 MG TABLETS PO SCH (21:47)
[2020-02-25] MEDS: NICOTINE 7 MG/24 HOURS TOPICAL PATCH TD SCH (10:27)
[2020-02-25] MEDS: PRENATAL VITAMINS W/ FOLIC ACID TABLET (FP) PO SCH (10:27)
[2020-02-25] MEDS: MENTHOL/PHENOL 1 EACH UD MM PRN ×2 (10:28→21:19)
[2020-02-25] MEDS: MELATONIN 5 MG TABLETS PO SCH (21:19)
[2020-02-25] MEDS: THIAMINE HCL 100 MG TABLET (FP) PO SCH (21:19)
[2020-02-26] MEDS: NICOTINE 7 MG/24 HOURS TOPICAL PATCH TD SCH (11:01)
[2020-02-26] MEDS: PRENATAL VITAMINS W/ FOLIC ACID TABLET (FP) PO SCH (11:04)
[2020-02-26] MEDS: MENTHOL/PHENOL 1 EACH UD MM PRN (11:06)
[2020-02-26] MEDS: MELATONIN 5 MG TABLETS PO SCH (22:36)
[2020-02-26] MEDS: THIAMINE HCL 100 MG TABLET (FP) PO SCH (22:36)
[2020-02-27] MEDS: PRENATAL VITAMINS W/ FOLIC ACID TABLET (FP) PO SCH (09:41)
[2020-02-27] MEDS: NICOTINE 7 MG/24 HOURS TOPICAL PATCH TD SCH (09:41)
[2020-02-27] MEDS: MENTHOL/PHENOL 1 EACH UD MM PRN (09:42)
[2020-02-27] MEDS: MELATONIN 5 MG TABLETS PO SCH (22:50)
[2020-02-27] MEDS: THIAMINE HCL 100 MG TABLET (FP) PO SCH (22:50)
[2020-02-28] MEDS: NICOTINE 7 MG/24 HOURS TOPICAL PATCH TD SCH (09:49)
[2020-02-28] MEDS: MENTHOL/PHENOL 1 EACH UD MM PRN (09:49)
[2020-02-28] MEDS: PRENATAL VITAMINS W/ FOLIC ACID TABLET (FP) PO SCH (09:49)
[2020-02-28] MEDS: MELATONIN 5 MG TABLETS PO SCH (21:42)
[2020-02-28] MEDS: THIAMINE HCL 100 MG TABLET (FP) PO SCH (21:42)
[2020-02-29] MEDS: NICOTINE 7 MG/24 HOURS TOPICAL PATCH TD SCH (09:46)
[2020-02-29] MEDS: PRENATAL VITAMINS W/ FOLIC ACID TABLET (FP) PO SCH (10:14)
[2020-02-29] MEDS: MENTHOL/PHENOL 1 EACH UD MM PRN (10:16)
[2020-02-29] MEDS: MELATONIN 5 MG TABLETS PO SCH (22:01)
[2020-02-29] MEDS: THIAMINE HCL 100 MG TABLET (FP) PO SCH (22:01)
[2020-03-01] MEDS: NICOTINE 7 MG/24 HOURS TOPICAL PATCH TD SCH (10:24)
[2020-03-01] MEDS: PRENATAL VITAMINS W/ FOLIC ACID TABLET (FP) PO SCH (10:24)
[2020-03-01] MEDS: MENTHOL/PHENOL 1 EACH UD MM PRN (10:25)
[2020-03-01] MEDS: MELATONIN 5 MG TABLETS PO SCH (21:55)
[2020-03-01] MEDS: THIAMINE HCL 100 MG TABLET (FP) PO SCH (21:55)
[2020-03-02] MEDS: NICOTINE 7 MG/24 HOURS TOPICAL PATCH TD SCH (10:21)
[2020-03-02] MEDS: PRENATAL VITAMINS W/ FOLIC ACID TABLET (FP) PO SCH (10:21)
[2020-03-02] MEDS: MENTHOL/PHENOL 1 EACH UD MM PRN (10:22)
[2020-03-02] MEDS: THIAMINE HCL 100 MG TABLET (FP) PO SCH (22:01)
[2020-03-02] MEDS: MELATONIN 5 MG TABLETS PO SCH (22:01)
[2020-03-03] MEDS: PRENATAL VITAMINS W/ FOLIC ACID TABLET (FP) PO SCH (10:03)
[2020-03-03] MEDS: MENTHOL/PHENOL 1 EACH UD MM PRN (10:04)
[2020-03-03] MEDS: NICOTINE 7 MG/24 HOURS TOPICAL PATCH TD SCH (10:04)
[2020-03-03] MEDS: MELATONIN 5 MG TABLETS PO SCH (21:38)
[2020-03-03] MEDS: THIAMINE HCL 100 MG TABLET (FP) PO SCH (21:38)
[2020-03-04] MEDS: NICOTINE 7 MG/24 HOURS TOPICAL PATCH TD SCH (10:13)
[2020-03-04] MEDS: PRENATAL VITAMINS W/ FOLIC ACID TABLET (FP) PO SCH (10:13)
[2020-03-04] MEDS: THIAMINE HCL 100 MG TABLET (FP) PO SCH (21:40)
[2020-03-04] MEDS: MELATONIN 5 MG TABLETS PO SCH (21:40)
[2020-03-05] MEDS: PRENATAL VITAMINS W/ FOLIC ACID TABLET (FP) PO SCH (10:28)
[2020-03-05] MEDS: MENTHOL/PHENOL 1 EACH UD MM PRN (10:28)
[2020-03-05] MEDS: NICOTINE 7 MG/24 HOURS TOPICAL PATCH TD SCH (10:28)
[2020-03-05] MEDS: MELATONIN 5 MG TABLETS PO SCH (21:32)
[2020-03-05] MEDS: THIAMINE HCL 100 MG TABLET (FP) PO SCH (21:32)
[2020-03-06] MEDS: PRENATAL VITAMINS W/ FOLIC ACID TABLET (FP) PO SCH (10:36)
[2020-03-06] MEDS: NICOTINE 7 MG/24 HOURS TOPICAL PATCH TD SCH (10:37)
[2020-03-06] MEDS: MELATONIN 5 MG TABLETS PO SCH (22:20)
[2020-03-06] MEDS: THIAMINE HCL 100 MG TABLET (FP) PO SCH (22:20)
[2020-03-07] MEDS: PRENATAL VITAMINS W/ FOLIC ACID TABLET (FP) PO SCH (10:51)
[2020-03-07] MEDS: MENTHOL/PHENOL 1 EACH UD MM PRN (10:51)
[2020-03-07] MEDS: NICOTINE 7 MG/24 HOURS TOPICAL PATCH TD SCH (10:51)
[2020-03-07] MEDS: MELATONIN 5 MG TABLETS PO SCH (21:59)
[2020-03-07] MEDS: THIAMINE HCL 100 MG TABLET (FP) PO SCH (22:00)
--- NOTE | 2020-03-08 08:46 | DS ---
[facility] Rehab Discharge Summary - [facility] Rehab Discharge Summary Admission Date: 02/23/20 Discharge Date: 03/09/20 - History Present History: Alcohol dependence, Cocaine dependence Pertinent Past History: Patient is a 54 year old man who presents with alcohol use disorder. Patient denies seizure, reports blackout about 5 years ago. His last admission was for detox on 09/22/19 and rehab beginning on 09/27/19. 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 medically stable for discharge.) Hospital Course: patient attended groups, had 1;1 with counselor. He had no acute or urgent medical problems while in rehab - Medication Discharge Medications: Ambulatory Orders NK [No Known Home Medication] 12/09/17 - Medication-Assisted Treatment (MAT) Medication-Assisted Treatment (MAT): No - Discharge Instructions Diet, activity, other medical instructions: Diet: As tolerated Activity: As tolerated Other medical instructions: Please follow up with aftercare referral. - Diagnosis (1) Alcohol dependence with withdrawal Current Visit: No Status: Chronic Qualifiers: Complication of substance-induced condition: uncomplicated Qualified Code(s): F10.230 - Alcohol dependence with withdrawal, uncomplicated (2) Cocaine dependence Current Visit: No Status: Chronic Qualifiers: Substance use status: uncomplicated Qualified Code(s): F14.20 - Cocaine dependence, uncomplicated - Follow-up Referral Minutes to complete discharge: 15 - AMA Did Patient Leave Against Medical Advice: No
[2020-03-08] MEDS: NICOTINE 7 MG/24 HOURS TOPICAL PATCH TD SCH (10:41)
[2020-03-08] MEDS: PRENATAL VITAMINS W/ FOLIC ACID TABLET (FP) PO SCH (10:41)
[2020-03-08] MEDS: MELATONIN 5 MG TABLETS PO SCH (21:44)
[2020-03-08] MEDS: THIAMINE HCL 100 MG TABLET (FP) PO SCH (21:44)
[2020-03-09 06:42] VITALS: BP 131/73; PULSE 65; TEMP 98.2
[2020-03-09] MEDS: NICOTINE 7 MG/24 HOURS TOPICAL PATCH TD SCH (09:08)
[2020-03-09] MEDS: PRENATAL VITAMINS W/ FOLIC ACID TABLET (FP) PO SCH (09:09)
== END 2020-03-09 09:47 | disposition home or self-care (01) | DRG 772 ==
LOC: YASAS 11:40 → Y3W 11:41
PROVIDERS: ADMIT Allergy & Immunology; ATTEND Allergy & Immunology
PROC: HZ42ZZZ Group Counseling for Substance Abuse Treatment, Cognitive-Behavioral (ICD-10-PCS; principal; 2020-02-23)
DX: F10.20 Alcohol dependence, uncomplicated (principal); F14.20 Cocaine dependence, uncomplicated; F17.210 Nicotine dependence, cigarettes, uncomplicated; J45.909 Unspecified asthma, uncomplicated; K00.0 Anodontia

== ENCOUNTER 2020-04-14 08:26 | Inpatient (IN) | payer OTHER ==
--- NOTE | 2020-04-14 08:53 | BHS.RME ---
Substance Use & Tx History - Substance Use History Alcohol Substance amount: 1 pint Julissa Frequency of use: Daily Substance route: Oral Date of Last Use: 04/14/20 Cocaine-Crack Substance amount: $270 Frequency of use: Daily Substance route: Smoking Date of Last Use: 04/14/20 Nicotine Substance amount: 4 ciggs Frequency of use: Daily Substance route: Smoking Date of Last Use: 04/14/20 Physical/Psych/Mental Status - Behavior General Behavior: Increased activity (restlessness, agitation) Eye Contact: Normal - Cooperativeness Cooperativeness: Cooperative - Thinking Thought Processes: Tight, Logical, Goal Directed Thought content: Future oriented - Physical Health Problems Is patient presently having any pain?: No Does patient presently have any injuries (include location): No Does patient currently have a fever: No Is patient : No CIWA Nausea/Vomitin-Mild Nausea/No Vomiting Muscle Tremors: 3 Anxiety: 3 Agitation: 3 Paroxysmal Sweats: 2 Orientation: 0-Oriented Tacttile Disturbances: 0-None Auditory Disturbances: 0-None Visual Disturbances: 0-None Headache: 2-Mild CIWA-Ar Total Score: 14
[2020-04-14 09:17] VITALS: BMI 32.3
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
[2020-04-14] MEDS ORDERED: BISMUTH SUBSALICYLATE 524 MG/30 ML UD PO PRN (09:28)
[2020-04-14] MEDS ORDERED: MAG HYDROX/AL HYDROX/SIMETH 30 ML UNIT-DOSE CUP PO PRN (09:28)
[2020-04-14] MEDS ORDERED: METHOCARBAMOL 500 MG TABLET PO PRN (09:28)
[2020-04-14] MEDS ORDERED: ONDANSETRON *ODT* 4 MG TABLET SL ONE (09:28)
[2020-04-14] MEDS ORDERED: ACETAMINOPHEN 325 MG TABLET (FP) PO PRN ×2 (09:28)
[2020-04-14] MEDS ORDERED: NICOTINE POLACRILEX 2 MG GUM BUC PRN (09:28)
[2020-04-14] MEDS ORDERED: MAGNESIUM HYDROX 2400MG/30ML ORAL SUSPENSION 30 ML CUP PO PRN (09:28)
[2020-04-14] MEDS ORDERED: IBUPROFEN 400 MG TABLET (FP) PO PRN (09:28)
[2020-04-14] MEDS ORDERED: MAGNESIUM CITRATE 300 ML BOTTLE PO PRN (09:28)
[2020-04-14] MEDS ORDERED: chlordiazePOXIDE HCL 25 MG CAPSULE PO PRN (09:28)
[2020-04-14] MEDS: NICOTINE 7 MG/24 HOURS TOPICAL PATCH TD SCH (11:07)
[2020-04-14] MEDS: chlordiazePOXIDE HCL 25 MG CAPSULE PO SCH ×3 (11:07→22:22)
[2020-04-14] MEDS: hydrOXYzine PAMOATE 25 MG CAPSULE (FP) PO SCH ×4 (11:07→22:22)
[2020-04-14] MEDS: PRENATAL VITAMINS W/ FOLIC ACID TABLET (FP) PO SCH (11:07)
--- NOTE | 2020-04-14 11:49 | PN ---
[facility] CIWA - CIWA Score Nausea/Vomitin-Mild Nausea/No Vomiting Muscle Tremors: 2 Anxiety: 1-Mildly Anxious Agitation: 1-Slight > Activity Paroxysmal Sweats: 1-Minimal Palms Moist Orientation: 0-Oriented Tacttile Disturbances: 0-None Auditory Disturbances: 0-None Visual Disturbances: 1-Very Mild Sensitivity Headache: 1-Very Mild CIWA-Ar Total Score: 8 S Progress Note (SOAP) Subjective: pt admitted yesterday for alcohol detox, feeling fine on detox protocol O: Vital Signs - 24 hr 04/14/20 04/14/20 04/14/20 09:15 09:28 09:34 Temperature 97.8 F 97.8 F 97.8 F Pulse Rate 76 76 76 Respiratory 16 16 16 Rate Blood Pressure 122/70 122/70 122/70 labs pending a/p AUD- pt on detox protocol, no complaints today
[2020-04-14 15:03] LABS: HEMATOCRIT 39.3 % (35.4-49); HEMOGLOBIN 13.2 GM/dL (11.7-16.9); MCH 31.3 pg (25.7-33.7); MCHC 33.7 g/dl (32.0-35.9); MEAN PLT VOLUME 9.4 fl (7.5-11.1); PLATELET COUNT 203 K/MM3 (134-434); RBC 4.22 M/mm3 (4.00-5.60); RDW 13.4 % (11.9-15.9)
[2020-04-14 15:18] LABS: ALBUMIN 4.1 g/dl (3.4-5.0); BLOOD UREA NITROGEN 14.2 mg/dL (7-18); CALCIUM 9.4 mg/dL (8.5-10.1); POTASSIUM 3.6 mmol/L (3.5-5.1)
[2020-04-14 15:23] LABS: CREATININE 1.4 mg/dL (0.55-1.3); TOT PROT 7.4 g/dl (6.4-8.2)
[2020-04-14] MEDS: MENTHOL/PHENOL 1 EACH UD MM PRN (17:53)
[2020-04-14] MEDS: THIAMINE HCL 100 MG TABLET (FP) PO SCH (22:22)
[2020-04-14] MEDS: MELATONIN 5 MG TABLETS PO SCH (22:22)
[2020-04-15] MEDS: chlordiazePOXIDE HCL 25 MG CAPSULE PO SCH ×4 (06:19→22:32)
[2020-04-15] MEDS: hydrOXYzine PAMOATE 25 MG CAPSULE (FP) PO SCH ×5 (06:20→22:33)
[2020-04-15] MEDS: NICOTINE 7 MG/24 HOURS TOPICAL PATCH TD SCH (12:41)
[2020-04-15] MEDS: PRENATAL VITAMINS W/ FOLIC ACID TABLET (FP) PO SCH (12:42)
--- NOTE | 2020-04-15 13:02 | PN ---
[facility] CIWA - CIWA Score Nausea/Vomitin-No Nausea/No Vomiting Muscle Tremors: 3 Anxiety: 3 Agitation: 2 Paroxysmal Sweats: 2 Orientation: 0-Oriented Tacttile Disturbances: 0-None Auditory Disturbances: 1-Very Mild Visual Disturbances: 1-Very Mild Sensitivity Headache: 0-None Present CIWA-Ar Total Score: 12 S Progress Note (SOAP) Subjective: Complaints of anxiety, sweats,agitation and light sensitivity. Objective: 04/15/20 12:59 Vital Signs 04/15/20 04/15/20 05:21 08:55 Temperature 98.4 F 97.5 F L Pulse Rate 59 L 79 Respiratory 20 19 Rate Blood Pressure 126/67 138/58 L O2 Sat by Pulse 98 98 Oximetry (%) Laboratory Last Values WBC 11.0 K/mm3 (4.0-10.0) H 04/14/20 09:25 RBC 4.22 M/mm3 (4.00-5.60) 04/14/20 09:25 Hgb 13.2 GM/dL (11.7-16.9) 04/14/20 09:25 Hct 39.3 % (35.4-49) 04/14/20 09:25 MCV 93.0 fl (80-96) 04/14/20 09:25 MCH 31.3 pg (25.7-33.7) 04/14/20 09:25 MCHC 33.7 g/dl (32.0-35.9) 04/14/20 09:25 RDW 13.4 % (11.9-15.9) 04/14/20 09:25 Plt Count 203 K/MM3 (134-434) 04/14/20 09:25 MPV 9.4 fl (7.5-11.1) 04/14/20 09:25 Sodium 141 mmol/L (136-145) 04/14/20 09:25 Potassium 3.6 mmol/L (3.5-5.1) 04/14/20 09:25 Chloride 106 mmol/L (98-107) 04/14/20 09:25 Carbon Dioxide 26 mmol/L (21-32) 04/14/20 09:25 Anion Gap 9 MMOL/L (8-16) 04/14/20 09:25 BUN 14.2 mg/dL (7-18) 04/14/20 09:25 Creatinine 1.4 mg/dL (0.55-1.3) H 04/14/20 09:25 Est GFR (CKD-EPI)AfAm 64.63 04/14/20 09:25 Est GFR (CKD-EPI)NonAf 55.77 04/14/20 09:25 Random Glucose 120 mg/dL (74-106) H 04/14/20 09:25 Calcium 9.4 mg/dL (8.5-10.1) 04/14/20 09:25 Total Bilirubin 2.0 mg/dL (0.2-1) H 04/14/20 09:25 AST 29 U/L (15-37) 04/14/20 09:25 ALT 30 U/L (13-61) 04/14/20 09:25 Alkaline Phosphatase 49 U/L (45-117) 04/14/20 09:25 Total Protein 7.4 g/dl (6.4-8.2) 04/14/20 09:25 Albumin 4.1 g/dl (3.4-5.0) 04/14/20 09:25 Syphilis Serology Non-reactive (NONREACTIVE) 04/14/20 09:25 COVID-19 (NINI) Not detected (Not Detected) 04/14/20 11:25 Labs reviewed. Assessment: 04/15/20 13:00 Alert and oriented x 3, in no acute respiratory distress. Full ROM, ambulating in the unit without assistance. Withdrawal symptoms. Plan: Continue detox protocol.
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
[2020-04-15] MEDS: MELATONIN 5 MG TABLETS PO SCH (22:33)
[2020-04-15] MEDS: THIAMINE HCL 100 MG TABLET (FP) PO SCH (22:33)
[2020-04-16] MEDS: chlordiazePOXIDE HCL 25 MG CAPSULE PO SCH ×4 (05:49→22:21)
[2020-04-16] MEDS: hydrOXYzine PAMOATE 25 MG CAPSULE (FP) PO SCH ×5 (05:50→22:21)
[2020-04-16] MEDS: MENTHOL/PHENOL 1 EACH UD MM PRN (05:53)
[2020-04-16] MEDS: NICOTINE 7 MG/24 HOURS TOPICAL PATCH TD SCH (10:32)
[2020-04-16] MEDS: PRENATAL VITAMINS W/ FOLIC ACID TABLET (FP) PO SCH (10:32)
--- NOTE | 2020-04-16 11:45 | PN ---
[facility] CIWA - CIWA Score Nausea/Vomitin-No Nausea/No Vomiting Muscle Tremors: 2 Anxiety: 2 Agitation: 2 Paroxysmal Sweats: 2 Orientation: 0-Oriented Tacttile Disturbances: 0-None Auditory Disturbances: 1-Very Mild Visual Disturbances: 0-None Headache: 0-None Present CIWA-Ar Total Score: 9 S Progress Note (SOAP) Subjective: Complaints of anxiety, agitation, sweats and mild noise sensitivity. Objective: 04/16/20 11:44 Vital Signs 04/16/20 04/16/20 05:40 09:00 Temperature 97.5 F L 98.8 F Pulse Rate 79 85 Respiratory 16 20 Rate Blood Pressure 128/67 113/70 O2 Sat by Pulse 98 Oximetry (%) Laboratory Last Values WBC 11.0 K/mm3 (4.0-10.0) H 04/14/20 09:25 RBC 4.22 M/mm3 (4.00-5.60) 04/14/20 09:25 Hgb 13.2 GM/dL (11.7-16.9) 04/14/20 09:25 Hct 39.3 % (35.4-49) 04/14/20 09:25 MCV 93.0 fl (80-96) 04/14/20 09:25 MCH 31.3 pg (25.7-33.7) 04/14/20 09:25 MCHC 33.7 g/dl (32.0-35.9) 04/14/20 09:25 RDW 13.4 % (11.9-15.9) 04/14/20 09:25 Plt Count 203 K/MM3 (134-434) 04/14/20 09:25 MPV 9.4 fl (7.5-11.1) 04/14/20 09:25 Sodium 141 mmol/L (136-145) 04/14/20 09:25 Potassium 3.6 mmol/L (3.5-5.1) 04/14/20 09:25 Chloride 106 mmol/L (98-107) 04/14/20 09:25 Carbon Dioxide 26 mmol/L (21-32) 04/14/20 09:25 Anion Gap 9 MMOL/L (8-16) 04/14/20 09:25 BUN 14.2 mg/dL (7-18) 04/14/20 09:25 Creatinine 1.4 mg/dL (0.55-1.3) H 04/14/20 09:25 Est GFR (CKD-EPI)AfAm 64.63 04/14/20 09:25 Est GFR (CKD-EPI)NonAf 55.77 04/14/20 09:25 Random Glucose 120 mg/dL (74-106) H 04/14/20 09:25 Calcium 9.4 mg/dL (8.5-10.1) 04/14/20 09:25 Total Bilirubin 2.0 mg/dL (0.2-1) H 04/14/20 09:25 AST 29 U/L (15-37) 04/14/20 09:25 ALT 30 U/L (13-61) 04/14/20 09:25 Alkaline Phosphatase 49 U/L (45-117) 04/14/20 09:25 Total Protein 7.4 g/dl (6.4-8.2) 04/14/20 09:25 Albumin 4.1 g/dl (3.4-5.0) 04/14/20 09:25 Syphilis Serology Non-reactive (NONREACTIVE) 04/14/20 09:25 COVID-19 (NINI) Not detected (Not Detected) 04/14/20 11:25 Labs noted. Assessment: 04/16/20 11:45 Patient was seen and examined at bedside. Alert and oriented x 3, in no acute respiratory distress. Full ROM, ambulatory without assistance. Withdrawal symptoms. Plan: Continue detox protocol.
[2020-04-16] MEDS: MELATONIN 5 MG TABLETS PO SCH (22:21)
[2020-04-16] MEDS: THIAMINE HCL 100 MG TABLET (FP) PO SCH (22:21)
[2020-04-17] MEDS ORDERED: chlordiazePOXIDE HCL 10 MG CAPSULE PO PRN
[2020-04-17] MEDS: hydrOXYzine PAMOATE 25 MG CAPSULE (FP) PO SCH ×5 (06:23→22:52)
[2020-04-17] MEDS: chlordiazePOXIDE HCL 10 MG CAPSULE PO SCH ×4 (06:23→22:53)
[2020-04-17] MEDS: NICOTINE 7 MG/24 HOURS TOPICAL PATCH TD SCH (10:45)
[2020-04-17] MEDS: PRENATAL VITAMINS W/ FOLIC ACID TABLET (FP) PO SCH (10:46)
--- NOTE | 2020-04-17 11:22 | PN ---
[facility] CIWA - CIWA Score Nausea/Vomitin-No Nausea/No Vomiting Muscle Tremors: None Anxiety: 2 Agitation: 0-Normal Activity Paroxysmal Sweats: 3 Orientation: 0-Oriented Tacttile Disturbances: 0-None Auditory Disturbances: 0-None Visual Disturbances: 0-None Headache: 1-Very Mild CIWA-Ar Total Score: 6 BHS Progress Note (SOAP) Subjective: c/o sweats, headache, and anxiety. Objective: 04/17/20 11:21 Vital Signs 04/17/20 04/17/20 06:12 08:30 Temperature 98 F 97.7 F Pulse Rate 68 75 Respiratory 18 18 Rate Blood Pressure 110/71 106/68 O2 Sat by Pulse 96 Oximetry (%) Laboratory Last Values WBC 11.0 K/mm3 (4.0-10.0) H 04/14/20 09:25 RBC 4.22 M/mm3 (4.00-5.60) 04/14/20 09:25 Hgb 13.2 GM/dL (11.7-16.9) 04/14/20 09:25 Hct 39.3 % (35.4-49) 04/14/20 09:25 MCV 93.0 fl (80-96) 04/14/20 09:25 MCH 31.3 pg (25.7-33.7) 04/14/20 09:25 MCHC 33.7 g/dl (32.0-35.9) 04/14/20 09:25 RDW 13.4 % (11.9-15.9) 04/14/20 09:25 Plt Count 203 K/MM3 (134-434) 04/14/20 09:25 MPV 9.4 fl (7.5-11.1) 04/14/20 09:25 Sodium 141 mmol/L (136-145) 04/14/20 09:25 Potassium 3.6 mmol/L (3.5-5.1) 04/14/20 09:25 Chloride 106 mmol/L (98-107) 04/14/20 09:25 Carbon Dioxide 26 mmol/L (21-32) 04/14/20 09:25 Anion Gap 9 MMOL/L (8-16) 04/14/20 09:25 BUN 14.2 mg/dL (7-18) 08/21/20 09:25 Creatinine 1.4 mg/dL (0.55-1.3) H 04/14/20 09:25 Est GFR (CKD-EPI)AfAm 64.63 04/14/20 09:25 Est GFR (CKD-EPI)NonAf 55.77 04/14/20 09:25 Random Glucose 120 mg/dL (74-106) H 04/14/20 09:25 Calcium 9.4 mg/dL (8.5-10.1) 04/14/20 09:25 Total Bilirubin 2.0 mg/dL (0.2-1) H 04/14/20 09:25 AST 29 U/L (15-37) 04/14/20 09:25 ALT 30 U/L (13-61) 04/14/20 09:25 Alkaline Phosphatase 49 U/L (45-117) 04/14/20 09:25 Total Protein 7.4 g/dl (6.4-8.2) 04/14/20 09:25 Albumin 4.1 g/dl (3.4-5.0) 04/14/20 09:25 Syphilis Serology Non-reactive (NONREACTIVE) 04/14/20 09:25 COVID-19 (NINI) Not detected (Not Detected) 04/14/20 11:25 Labs noted. Assessment: 04/17/20 11:21 AOX3 and in no acute respiratory. Full ROM, ambulating in the unit. Withdrawal symptoms. Plan: continue detox.
[2020-04-17] MEDS: MELATONIN 5 MG TABLETS PO SCH (22:52)
[2020-04-17] MEDS: THIAMINE HCL 100 MG TABLET (FP) PO SCH (22:53)
[2020-04-18] MEDS: MENTHOL/PHENOL 1 EACH UD MM PRN ×2 (02:57→22:21)
[2020-04-18] MEDS: hydrOXYzine PAMOATE 25 MG CAPSULE (FP) PO SCH ×5 (06:36→23:12)
[2020-04-18] MEDS: chlordiazePOXIDE HCL 10 MG CAPSULE PO SCH ×2 (06:37→18:06)
[2020-04-18] MEDS: PRENATAL VITAMINS W/ FOLIC ACID TABLET (FP) PO SCH (10:13)
[2020-04-18] MEDS: NICOTINE 7 MG/24 HOURS TOPICAL PATCH TD SCH (10:13)
--- NOTE | 2020-04-18 12:08 | PN ---
[facility] CIWA - CIWA Score Nausea/Vomitin-No Nausea/No Vomiting Muscle Tremors: None Anxiety: 2 Agitation: 0-Normal Activity Paroxysmal Sweats: 2 Orientation: 0-Oriented Tacttile Disturbances: 0-None Auditory Disturbances: 0-None Visual Disturbances: 0-None Headache: 0-None Present CIWA-Ar Total Score: 4 S Progress Note (SOAP) Subjective: c/o mild withdrawal symptoms. Objective: 04/18/20 12:07 Vital Signs 04/18/20 04/18/20 07:32 09:22 Temperature 98 F 98.9 F Pulse Rate 74 98 H Respiratory 18 18 Rate Blood Pressure 127/65 128/61 O2 Sat by Pulse 97 97 Oximetry (%) Laboratory Last Values WBC 11.0 K/mm3 (4.0-10.0) H 04/14/20 09:25 RBC 4.22 M/mm3 (4.00-5.60) 04/14/20 09:25 Hgb 13.2 GM/dL (11.7-16.9) 04/14/20 09:25 Hct 39.3 % (35.4-49) 04/14/20 09:25 MCV 93.0 fl (80-96) 04/14/20 09:25 MCH 31.3 pg (25.7-33.7) 04/14/20 09:25 MCHC 33.7 g/dl (32.0-35.9) 04/14/20 09:25 RDW 13.4 % (11.9-15.9) 04/14/20 09:25 Plt Count 203 K/MM3 (134-434) 04/14/20 09:25 MPV 9.4 fl (7.5-11.1) 04/14/20 09:25 Sodium 141 mmol/L (136-145) 04/14/20 09:25 Potassium 3.6 mmol/L (3.5-5.1) 04/14/20 09:25 Chloride 106 mmol/L (98-107) 04/14/20 09:25 Carbon Dioxide 26 mmol/L (21-32) 04/14/20 09:25 Anion Gap 9 MMOL/L (8-16) 04/14/20 09:25 BUN 14.2 mg/dL (7-18) 04/14/20 09:25 Creatinine 1.4 mg/dL (0.55-1.3) H 04/14/20 09:25 Est GFR (CKD-EPI)AfAm 64.63 04/14/20 09:25 Est GFR (CKD-EPI)NonAf 55.77 04/14/20 09:25 Random Glucose 120 mg/dL (74-106) H 04/14/20 09:25 Calcium 9.4 mg/dL (8.5-10.1) 04/14/20 09:25 Total Bilirubin 2.0 mg/dL (0.2-1) H 04/14/20 09:25 AST 29 U/L (15-37) 04/14/20 09:25 ALT 30 U/L (13-61) 04/14/20 09:25 Alkaline Phosphatase 49 U/L (45-117) 04/14/20 09:25 Total Protein 7.4 g/dl (6.4-8.2) 04/14/20 09:25 Albumin 4.1 g/dl (3.4-5.0) 04/14/20 09:25 Syphilis Serology Non-reactive (NONREACTIVE) 04/14/20 09:25 COVID-19 (NINI) Not detected (Not Detected) 04/14/20 11:25 Labs noted. Assessment: 04/18/20 12:07 AOX3, in no acute respiratory distress. Full ROM, ambulating in the unit. Mild Withdrawal symptoms. For d/c tomorrow. Plan: continue detox. D/C in AM.
[2020-04-18] MEDS: THIAMINE HCL 100 MG TABLET (FP) PO SCH (23:12)
[2020-04-18] MEDS: MELATONIN 5 MG TABLETS PO SCH (23:12)
[2020-04-19] MEDS ORDERED: chlordiazePOXIDE HCL 10 MG CAPSULE PO ONE (05:00)
[2020-04-19] MEDS: MENTHOL/PHENOL 1 EACH UD MM PRN (07:03)
[2020-04-19] MEDS: hydrOXYzine PAMOATE 25 MG CAPSULE (FP) PO SCH (07:05)
[2020-04-19 07:26] VITALS: TEMP 97.7
[2020-04-19 09:44] VITALS: BP 109/67; PULSE 80
--- NOTE | 2020-04-19 11:46 | DS ---
[facility] Detox Discharge Summary Admission Date: 04/14/20 Discharge Date: 04/19/20 - History Present History: Alcohol Dependence, Cocaine Dependence Additional Comments: Pt is medically cleared and discharged today. Pt completed the detox protocol. Pt is encouraged to follow-up with an outpatient CD program and also to follow- up with his pmd which he verbalized understanding. Pt is AOX3, in no acute respiratory distress, Full ROM, and ambulatory. Pertinent Past History: h/o asthma, alcohol and cocaine use disorder. - Physical Exam Results Vital Signs: Vital Signs Temperature 97.7 F 04/19/20 08:50 Pulse Rate 80 04/19/20 08:50 Respiratory Rate 16 04/19/20 08:50 Blood Pressure 109/67 04/19/20 08:50 O2 Sat by Pulse Oximetry (%) 96 04/19/20 05:48 Vital Signs 04/19/20 04/19/20 05:48 08:50 Temperature 97.7 F 97.7 F Pulse Rate 78 80 Respiratory 18 16 Rate Blood Pressure 124/73 109/67 O2 Sat by Pulse 96 Oximetry (%) Laboratory Last Values WBC 11.0 K/mm3 (4.0-10.0) H 04/14/20 09:25 RBC 4.22 M/mm3 (4.00-5.60) 04/14/20 09:25 Hgb 13.2 GM/dL (11.7-16.9) 04/14/20 09:25 Hct 39.3 % (35.4-49) 04/14/20 09:25 MCV 93.0 fl (80-96) 04/14/20 09:25 MCH 31.3 pg (25.7-33.7) 04/14/20 09:25 MCHC 33.7 g/dl (32.0-35.9) 04/14/20 09:25 RDW 13.4 % (11.9-15.9) 04/14/20 09:25 Plt Count 203 K/MM3 (134-434) 04/14/20 09:25 MPV 9.4 fl (7.5-11.1) 04/14/20 09:25 Sodium 141 mmol/L (136-145) 04/14/20 09:25 Potassium 3.6 mmol/L (3.5-5.1) 04/14/20 09:25 Chloride 106 mmol/L (98-107) 04/14/20 09:25 Carbon Dioxide 26 mmol/L (21-32) 04/14/20 09:25 Anion Gap 9 MMOL/L (8-16) 04/14/20 09:25 BUN 14.2 mg/dL (7-18) 04/14/20 09:25 Creatinine 1.4 mg/dL (0.55-1.3) H 04/14/20 09:25 Est GFR (CKD-EPI)AfAm 64.63 04/14/20 09:25 Est GFR (CKD-EPI)NonAf 55.77 04/14/20 09:25 Random Glucose 120 mg/dL (74-106) H 04/14/20 09:25 Calcium 9.4 mg/dL (8.5-10.1) 04/14/20 09:25 Total Bilirubin 2.0 mg/dL (0.2-1) H 04/14/20 09:25 AST 29 U/L (15-37) 04/14/20 09:25 ALT 30 U/L (13-61) 04/14/20 09:25 Alkaline Phosphatase 49 U/L (45-117) 04/14/20 09:25 Total Protein 7.4 g/dl (6.4-8.2) 04/14/20 09:25 Albumin 4.1 g/dl (3.4-5.0) 04/14/20 09:25 Syphilis Serology Non-reactive (NONREACTIVE) 04/14/20 09:25 COVID-19 (NINI) Not detected (Not Detected) 04/14/20 11:25 Labs noted. Pertinent Admission Physical Exam Findings: withdrawal symptoms. - Treatment Hospital Course: Detox Protocol Followed, Detoxed Safely, Responded well, Discharged Condition Good - Medication Discharge Medications: Ambulatory Orders NK [No Known Home Medication] 12/09/17 - Diagnosis (1) Alcohol dependence with withdrawal Status: Acute Qualifiers: Complication of substance-induced condition: uncomplicated Qualified Code(s): F10.230 - Alcohol dependence with withdrawal, uncomplicated (2) Cocaine dependence Status: Chronic Qualifiers: Substance use status: uncomplicated Qualified Code(s): F14.20 - Cocaine dependence, uncomplicated (3) Nicotine dependence Status: Chronic Qualifiers: Nicotine product type: cigarettes Substance use status: uncomplicated Qualified Code(s): F17.210 - Nicotine dependence, cigarettes, uncomplicated (4) Alcohol use disorder Status: Chronic - AMA Did Patient Leave Against Medical Advice: No
== END 2020-04-19 11:07 | disposition home or self-care (01) | DRG 774 ==
LOC: YASAS 08:26 → Y6N 09:49
PROVIDERS: ADMIT Allergy & Immunology; ATTEND Allergy & Immunology
PROC: HZ2ZZZZ Detoxification Services for Substance Abuse Treatment (ICD-10-PCS; principal; 2020-04-14)
DX: F10.230 Alcohol dependence with withdrawal, uncomplicated (principal); F14.20 Cocaine dependence, uncomplicated; F13.20 Sedative, hypnotic or anxiolytic dependence, uncomplicated; F17.210 Nicotine dependence, cigarettes, uncomplicated; F31.9 Bipolar disorder, unspecified; K43.9 Ventral hernia without obstruction or gangrene; R60.0 Localized edema; Z87.09 Personal history of other diseases of the respiratory system; Z98.890 Other specified postprocedural states; Z68.32 Body mass index [BMI] 32.0-32.9, adult; Z88.0 Allergy status to penicillin; Z56.0 Unemployment, unspecified; Z59.0 Homelessness
CPT/HCPCS: 36415; 80053; 85027; 86780; U0003

== ENCOUNTER 2021-09-29 09:34 | Inpatient (IN) | payer OTHER ==
[2021-09-29 10:20] VITALS: BMI 29.5
[2021-09-29] MEDS ORDERED: MAGNESIUM HYDROX 2400MG/30ML ORAL SUSPENSION 30 ML CUP PO PRN (10:45)
[2021-09-29] MEDS ORDERED: ONDANSETRON *ODT* 4 MG TABLET SL PRN (10:45)
[2021-09-29] MEDS ORDERED: ACETAMINOPHEN 325 MG TABLET (FP) PO PRN ×2 (10:45)
[2021-09-29] MEDS ORDERED: NICOTINE 10 MG CARTRIDGE (INHALER) IH PRN (10:45)
[2021-09-29] MEDS ORDERED: IBUPROFEN 400 MG TABLET (FP) PO PRN (10:45)
[2021-09-29] MEDS ORDERED: chlordiazePOXIDE HCL 25 MG CAPSULE PO PRN (10:45)
[2021-09-29] MEDS ORDERED: chlordiazePOXIDE HCL 25 MG CAPSULE PO ONE (10:45)
[2021-09-29] MEDS ORDERED: MAGNESIUM CITRATE 300 ML BOTTLE PO PRN (10:45)
[2021-09-29] MEDS ORDERED: BISMUTH SUBSALICYLATE 524 MG/30 ML PO PRN (10:45)
[2021-09-29] MEDS ORDERED: MAG HYDROX/AL HYDROX/SIMETH 30 ML UNIT-DOSE CUP PO PRN (10:45)
[2021-09-29] MEDS ORDERED: METHOCARBAMOL 500 MG TABLET PO PRN (10:45)
[2021-09-29] MEDS: hydrOXYzine PAMOATE 25 MG CAPSULE (FP) PO SCH ×3 (14:57→22:50)
[2021-09-29] MEDS: chlordiazePOXIDE HCL 25 MG CAPSULE PO SCH ×2 (18:44→22:50)
[2021-09-29] MEDS: THIAMINE HCL 100 MG TABLET (FP) PO SCH (22:50)
[2021-09-29] MEDS: MELATONIN 5 MG TABLETS PO SCH (22:50)
[2021-09-30] MEDS: hydrOXYzine PAMOATE 25 MG CAPSULE (FP) PO SCH ×5 (05:46→23:03)
[2021-09-30] MEDS: chlordiazePOXIDE HCL 25 MG CAPSULE PO SCH ×4 (05:46→23:03)
[2021-09-30] MEDS: PRENATAL VITAMINS W/ FOLIC ACID TABLET (FP) PO SCH (10:31)
[2021-09-30 12:07] LABS: ALBUMIN 3.8 g/dl (3.4-5.0); CALCIUM 8.9 mg/dL (8.5-10.1); HEMATOCRIT 44.1 % (35.4-49); HEMOGLOBIN 14.3 GM/dL (11.7-16.9); MCH 30.8 pg (25.7-33.7); MCHC 32.5 g/dl (32.0-35.9); MEAN CELL VOLUME 94.7 fl (80-96); MEAN PLT VOLUME 9.3 fl (7.5-11.1); PLATELET COUNT 182 10^3/uL (134-434); RBC 4.66 M/mm3 (4.00-5.60); RDW 13.1 % (11.9-15.9); WHITE BLOOD COUNT 5.1 K/mm3 (4.0-10.0)
[2021-09-30 12:11] LABS: CREATININE 1.1 mg/dL (0.55-1.3)
[2021-09-30 12:13] LABS: TOT PROT 7.2 g/dl (6.4-8.2)
[2021-09-30 12:24] LABS: BILIRUBIN,TOTAL 0.9 mg/dL (0.2-1)
[2021-09-30] MEDS: MENTHOL/PHENOL 1 EACH UD MM PRN (19:10)
[2021-09-30] MEDS: THIAMINE HCL 100 MG TABLET (FP) PO SCH (23:03)
[2021-09-30] MEDS: MELATONIN 5 MG TABLETS PO SCH (23:03)
[2021-10-01] MEDS: chlordiazePOXIDE HCL 25 MG CAPSULE PO SCH ×4 (05:28→22:37)
[2021-10-01] MEDS: hydrOXYzine PAMOATE 25 MG CAPSULE (FP) PO SCH ×5 (05:28→22:37)
[2021-10-01] MEDS: PRENATAL VITAMINS W/ FOLIC ACID TABLET (FP) PO SCH (10:25)
[2021-10-01] MEDS: MENTHOL/PHENOL 1 EACH UD MM PRN (18:23)
[2021-10-01] MEDS: MELATONIN 5 MG TABLETS PO SCH (22:37)
[2021-10-01] MEDS: THIAMINE HCL 100 MG TABLET (FP) PO SCH (22:37)
[2021-10-02] MEDS ORDERED: chlordiazePOXIDE HCL 10 MG CAPSULE PO PRN
[2021-10-02] MEDS: hydrOXYzine PAMOATE 25 MG CAPSULE (FP) PO SCH ×5 (05:32→22:58)
[2021-10-02] MEDS: chlordiazePOXIDE HCL 10 MG CAPSULE PO SCH ×4 (05:33→22:58)
[2021-10-02] MEDS: PRENATAL VITAMINS W/ FOLIC ACID TABLET (FP) PO SCH (10:34)
[2021-10-02] MEDS: MELATONIN 5 MG TABLETS PO SCH (22:58)
[2021-10-02] MEDS: THIAMINE HCL 100 MG TABLET (FP) PO SCH (22:58)
[2021-10-03] MEDS: chlordiazePOXIDE HCL 10 MG CAPSULE PO SCH ×2 (06:44→18:17)
[2021-10-03] MEDS: hydrOXYzine PAMOATE 25 MG CAPSULE (FP) PO SCH ×5 (06:44→23:56)
[2021-10-03] MEDS: PRENATAL VITAMINS W/ FOLIC ACID TABLET (FP) PO SCH (10:03)
[2021-10-03] MEDS: MENTHOL/PHENOL 1 EACH UD MM PRN (18:21)
[2021-10-03] MEDS: MELATONIN 5 MG TABLETS PO SCH (23:56)
[2021-10-03] MEDS: THIAMINE HCL 100 MG TABLET (FP) PO SCH (23:56)
[2021-10-04] MEDS ORDERED: chlordiazePOXIDE HCL 10 MG CAPSULE PO ONE (05:00)
[2021-10-04] MEDS: hydrOXYzine PAMOATE 25 MG CAPSULE (FP) PO SCH ×2 (06:12→10:22)
[2021-10-04] MEDS: PRENATAL VITAMINS W/ FOLIC ACID TABLET (FP) PO SCH (10:22)
[2021-10-04] MEDS: MENTHOL/PHENOL 1 EACH UD MM PRN (10:23)
[2021-10-04 14:11] VITALS: BP 116/81; PULSE 98; TEMP 97.9
== END 2021-10-04 01:50 | disposition other institution (70) | DRG 774 ==
LOC: YASAS 09:34 → Y6N 16:20
PROVIDERS: ADMIT Allergy & Immunology; ATTEND Allergy & Immunology
PROC: HZ2ZZZZ Detoxification Services for Substance Abuse Treatment (ICD-10-PCS; principal; 2021-09-29)
DX: F10.230 Alcohol dependence with withdrawal, uncomplicated (principal); F14.20 Cocaine dependence, uncomplicated; F31.9 Bipolar disorder, unspecified; K00.0 Anodontia; R79.89 Other specified abnormal findings of blood chemistry; Z87.891 Personal history of nicotine dependence; Z86.59 Personal history of other mental and behavioral disorders; Z88.0 Allergy status to penicillin; Z59.01 Sheltered homelessness
CPT/HCPCS: 36415; 80053; 85027; 86780; C9803; U0003; U0005

== ENCOUNTER 2021-10-04 14:29 | Inpatient (IN) | payer OTHER ==
[2021-10-04] MEDS ORDERED: guaiFENesin 200 MG/10 ML 10 ML UNIT-DOSE CUPS PO PRN (22:41)
[2021-10-04] MEDS ORDERED: MAGNESIUM CITRATE 300 ML BOTTLE PO PRN (22:41)
[2021-10-04] MEDS ORDERED: IBUPROFEN 400 MG TABLET (FP) PO PRN (22:41)
[2021-10-04] MEDS ORDERED: ACETAMINOPHEN 325 MG TABLET (FP) PO PRN (22:41)
[2021-10-04] MEDS ORDERED: P-EPHED 60MG/TRIPROLIDI 2.5MG TABLET PO PRN (22:41)
[2021-10-04] MEDS ORDERED: MAG HYDROX/AL HYDROX/SIMETH 30 ML UNIT-DOSE CUP PO PRN (22:41)
[2021-10-04] MEDS ORDERED: MAGNESIUM HYDROX 2400MG/30ML ORAL SUSPENSION 30 ML CUP PO PRN (22:41)
[2021-10-04] MEDS ORDERED: LOPERAMIDE HCL 2 MG CAPSULE PO PRN (22:41)
[2021-10-04] MEDS ORDERED: MENTHOL/PHENOL 1 EACH UD MM PRN (22:41)
[2021-10-04] MEDS: MELATONIN 5 MG TABLETS PO SCH (22:56)
[2021-10-05] MEDS: PRENATAL VITAMINS W/ FOLIC ACID TABLET (FP) PO SCH (10:24)
[2021-10-05] MEDS: THIAMINE HCL 100 MG TABLET (FP) PO SCH (22:36)
[2021-10-05] MEDS: MELATONIN 5 MG TABLETS PO SCH (22:36)
[2021-10-06] MEDS: PRENATAL VITAMINS W/ FOLIC ACID TABLET (FP) PO SCH (09:55)
[2021-10-06] MEDS: THIAMINE HCL 100 MG TABLET (FP) PO SCH (21:44)
[2021-10-06] MEDS: MELATONIN 5 MG TABLETS PO SCH (21:44)
[2021-10-07] MEDS: PRENATAL VITAMINS W/ FOLIC ACID TABLET (FP) PO SCH ×2 (12:15→12:44)
[2021-10-07] MEDS: MELATONIN 5 MG TABLETS PO SCH (21:48)
[2021-10-07] MEDS: THIAMINE HCL 100 MG TABLET (FP) PO SCH (21:49)
[2021-10-08 08:20] VITALS: BP 148/60; PULSE 85; TEMP 98.8
[2021-10-08] MEDS: PRENATAL VITAMINS W/ FOLIC ACID TABLET (FP) PO SCH (09:33)
== END 2021-10-08 11:46 | disposition home or self-care (01) | DRG 774 ==
LOC: YASAS 14:29 → Y3W 14:31
PROVIDERS: ADMIT Allergy & Immunology; ATTEND Allergy & Immunology
PROC: HZ2ZZZZ Detoxification Services for Substance Abuse Treatment (ICD-10-PCS; principal; 2021-10-04)
DX: F10.20 Alcohol dependence, uncomplicated (principal); F14.20 Cocaine dependence, uncomplicated; F17.210 Nicotine dependence, cigarettes, uncomplicated; F31.9 Bipolar disorder, unspecified; J45.909 Unspecified asthma, uncomplicated; K00.0 Anodontia